=== PATIENT | male | born 1945 | race Caucasian/White ===

== ENCOUNTER 2017-05-27 19:54 | Emergency (ER) | payer MEDICARE, BC ==
[2017-05-27] MEDS ORDERED: carBAMazepine 200 MG TAB PO STA (23:09)
--- NOTE | 2017-05-27 23:09 | ED ---
General Adult HPI - General Chief complaint: Skin/Abscess/Foreign Body Stated complaint: head pains/shingles Time Seen by Provider: 05/27/17 22:07 Source: patient Mode of arrival: ambulatory Limitations: no limitations - History of Present Illness Initial comments: 71-year-old male patient presents to the emergency department today for evaluation of left sided head pain. Patient states that the pain is superficial and related to a recent shingles infection. Patient states that the skin to the left side of his head is tender. Patient states that all of his wounds and sores have healed however he has been getting intermittent and sharp head pains since this shingles started. Patient states that he has been taking gabapentin, Tylenol 3, and applying cool compresses to the site however doesn't seem to be helping. He states that the pains come out of nowhere. He states that the pain is so severe that it brings him to his knees. He denies any blurred or double vision. States he has chronic hearing loss but no changes. Patient denies any recent fever, chills, shortness breath, chest pain, abdominal pain, nausea, vomiting, diarrhea, constipation, back pain, numbness, tingling, dizziness, weakness, hematuria, dysuria, urinary urgency, urinary frequency, or any other complaints. - Related Data Previous Rx's Medication Instructions Recorded carBAMazepine 200 mg PO BID #60 tablet 05/27/17 Allergies Allergy/AdvReac Type Severity Reaction Status Date / Time No Known Allergies Allergy Verified 05/27/17 20:19 Review of Systems ROS Statement: Those systems with pertinent positive or pertinent negative responses have been documented in the HPI. ROS Other: All systems not noted in ROS Statement are negative. Past Medical History Additional Past Medical History / Comment(s): shingles History of Any Multi-Drug Resistant Organisms: None Reported Past Surgical History: No Surgical Hx Reported Past Psychological History: No Psychological Hx Reported Smoking Status: Never smoker Past Alcohol Use History: None Reported Past Drug Use History: None Reported General Exam Limitations: no limitations General appearance: alert, in no apparent distress, other (This is a well- developed, well-nourished adult male patient in no acute distress. Vital signs upon presentation are temperature 98.3F, pulse 96, respirations 20, blood pressure 175/96, pulse ox 96% on room air.) Head exam: Present: atraumatic, normocephalic, normal inspection Eye exam: Present: normal appearance, PERRL, EOMI. Absent: scleral icterus, conjunctival injection, periorbital swelling ENT exam: Present: normal exam, normal oropharynx, mucous membranes moist Respiratory exam: Present: normal lung sounds bilaterally. Absent: respiratory distress, wheezes, rales, rhonchi, stridor Cardiovascular Exam: Present: regular rate, normal rhythm, normal heart sounds. Absent: systolic murmur, diastolic murmur, rubs, gallop, clicks Neurological exam: Present: alert, oriented X3, CN II-XII intact Psychiatric exam: Present: normal affect, normal mood Skin exam: Present: warm, dry, intact, normal color. Absent: rash Course Vital Signs 05/27/17 05/27/17 05/27/17 20:16 22:03 23:13 Temperature 98.3 F 97.3 F L Pulse Rate 96 89 89 Respiratory 20 18 18 Rate Blood Pressure 175/96 186/106 180/107 O2 Sat by Pulse 96 98 97 Oximetry 05/27/17 05/28/17 23:55 00:29 Temperature 98.6 F Pulse Rate 79 72 Respiratory 18 20 Rate Blood Pressure 184/108 172/100 O2 Sat by Pulse 99 99 Oximetry Medical Decision Making - Medical Decision Making 71-year-old male patient presented to the emergency department today for evaluation of left-sided head pain related to a recent shingles infection. Physical examination is unremarkable. Patient is neurologically intact. Pain is consistent with postherpetic neuralgia. Symptoms are similar to a trigeminal neuralgia so we will attempt to add carbamazepine to his medication regimen. He is instructed to continue his gabapentin and Tylenol 3 as needed. I did discuss follow-up with neurologist. Patient did have elevated blood pressure while here in the department. He was given clonidine to bring this down. Blood pressure did improve prior to discharge she is instructed to follow -up with his primary care physician for further evaluation and monitoring of this. Return parameters were discussed in detail. He verbalizes understanding and agrees with this plan. Disposition Clinical Impression: Postherpetic neuralgia Disposition: HOME SELF-CARE Condition: Good Instructions: Shingles (ED) Additional Instructions: Take medication as directed. Follow up with the neurologist as soon as possible. Return here immediately for any new, worsening, or concerning symptoms. Prescriptions: carBAMazepine 200 mg PO BID #60 tablet Is patient prescribed a controlled substance at discharge?: No Referrals: Kaley Andres MD [Primary Care Provider] - 1-2 days Tadeo Georges MD [STAFF PHYSICIAN] - 1-2 days Time of Disposition: 23:09
[2017-05-27] MEDS ORDERED: cloNIDine HCL 0.2 MG TAB PO STA (23:50)
[2017-05-28 00:31] VITALS: BP 172/100; PULSE 72; RESP 20; TEMP 98.6
== END 2017-05-28 00:31 | disposition home or self-care (01) ==
LOC: EC 19:54
DX: B02.29 Other postherpetic nervous system involvement (principal); I10 Essential (primary) hypertension; H91.90 Unspecified hearing loss, unspecified ear
CPT/HCPCS: 99283

== ENCOUNTER → 2017-06-02 | Outpatient (CLI) | payer MEDICARE, BC ==
--- NOTE | 2017-06-02 11:36 | MR ---
EXAMINATION TYPE: MR brain wo/w con DATE OF EXAM: 06/02/2017 COMPARISON: NONE HISTORY: Headache, neck pain TECHNIQUE: Multiplanar, multisequence images of the brain and brainstem is performed without and with IV contras t, utilizing 9 mL intravenous Gadavist . FINDINGS: Diffusion weighted images demonstrate no evidence of a recent infarct or other diffusion ab normality. There is no midline shift or mass effect. No midline shift. Moderate generalized degenerative change. No enhancing mass. No cerebellopontine angle mass. Changes suggestive of chronic mastoiditis noted. WHITE MATTER: There are approximately 15 areas of abnormal signal seen scattered throughout the white matter. No callosal lesions. No lesions perpendicular to ventricular system. No enhancing lesions. IMPRESSION: 1. Degenerative and nonspecific white matter changes. Differential diagnosis would include remote alycia rovascular ischemia. Other etiologies including hypertension, Lyme's disease or demyelinating process in the differential diagnosis.
== END | disposition home or self-care (01) ==
LOC: RADMRIMAIN 08:53
PROVIDERS: ATTEND Psychiatry & Neurology Neurology
DX: R51 Headache (principal); Z51.81 Encounter for therapeutic drug level monitoring
CPT/HCPCS: 82565; 84520; 70553; 93005; A9581

== ENCOUNTER 2017-06-09 17:57 | Emergency (ER) | payer MEDICARE, BC ==
[2017-06-09 18:30] LABS: Basophils % (A) 0 %; Eosinophils # (A) 0.1 k/uL (0-0.7); Eosinophils % (A) 2 %; HCT 46.6 % (39.0-53.0); HGB 16.5 gm/dL (13.0-17.5); Lymphocytes # (A) 0.4 k/uL (1.0-4.8); Lymphocytes % (A) 5 %; MCH 32.6 pg (25.0-35.0); MCHC 35.3 g/dL (31.0-37.0); MCV 92.3 fL (80.0-100.0); Mean Platelet Volume 10.7; Monocytes # (A) 0.6 k/uL (0-1.0); Monocytes % (A) 6 %; Neutrophils # (A) 7.4 k/uL (1.3-7.7); Neutrophils % (A) 86 %; RBC 5.05 m/uL (4.30-5.90); RDW 12.7 % (11.5-15.5); WBC 8.6 k/uL (3.8-10.6)
[2017-06-09 18:42] LABS: ALT 25 U/L (21-72); AST 18 U/L (17-59); Alkaline Phosphatase 95 U/L (38-126); Anion Gap 13 mmol/L; Blood Urea Nitrogen 25 mg/dL (9-20); Calcium 8.9 mg/dL (8.4-10.2); Carbon Dioxide 26 mmol/L (22-30); Chloride 101 mmol/L (98-107); Glucose 111 mg/dL (74-99); Potassium 4.4 mmol/L (3.5-5.1); Sodium 140 mmol/L (137-145); Total Bilirubin 0.4 mg/dL (0.2-1.3); Total Protein 6.2 g/dL (6.3-8.2)
[2017-06-09 18:54] LABS: Platelet Count 11 k/uL (150-450)
--- NOTE | 2017-06-09 20:43 | CT ---
EXAMINATION TYPE: CT brain wo con DATE OF EXAM: 06/09/2017 COMPARISON: NONE HISTORY: Patient complains of headache. CT DLP: 820.[address] of the brain was performed. The ventricles, basal cisterns and sulci overlying the cerebral convexities demonstrate mild enlargem ent. There is no evidence for intracranial hemorrhage or sulcal effacement. There is decreased attenuation about the periventricular white matter and deep white matter of both c erebral hemispheres, compatible with chronic small vessel ischemia. Differential diagnosis does inclu de demyelination. No mass effects are seen.No midline shift. Osseous calvarium is intact. If symptoms persist consider MRI. IMPRESSION: 1. Age related atrophic and chronic small vessel ischemic change without acute intracranial process s een at this time.
--- NOTE | 2017-06-09 21:01 | ED ---
General Adult HPI - General Chief complaint: Recheck/Abnormal Lab/Rx Stated complaint: labs/recheck-sent by Time Seen by Provider: 06/09/17 19:42 Source: patient, RN notes reviewed Mode of arrival: ambulatory Limitations: no limitations - History of Present Illness Initial comments: 71-year-old male presents for evaluation of abnormal outpatient laboratory study. Patient had his blood drawn earlier today was called by his primary care physician with concern for low platelets. According to the patient platelets were 11 and he was told to present to the emergency department. Patient has been dealing with trigeminal neuralgia and postherpetic neuralgia on the left side of his face after a shingles infection. He has been on several new medications including acyclovir, prednisone, gabapentin and carbamazepine. Symptoms have somewhat improved although he does report severe pain at the time my evaluation is probably left facial and forehead. He does report some global headache as well. Denies any focal weakness. Denies any numbness. No rectal bleeding. No hematuria. No bleeding from the gums. No abdominal pain or chest pain. - Related Data Home Medications Medication Instructions Recorded Confirmed Acetaminophen-Codeine 300-30mg 1 tab PO Q6H PRN 06/09/17 06/09/17 [Tylenol #3] Aspirin [Adult Low Dose Aspirin EC] 81 mg PO DAILY 06/09/17 06/09/17 Atorvastatin [Lipitor] 40 mg PO HS 06/09/17 06/09/17 Gabapentin [Neurontin] 300 mg PO TID 06/09/17 06/09/17 HYDROcodone/APAP 5-325MG [[place] 1 tab PO Q6HR PRN 06/09/17 06/09/17 5-325] Lansoprazole [Prevacid] 30 mg PO DAILY 06/09/17 06/09/17 Olopatadine HCl [Patanol] 1 drop BOTH EYES DAILY 06/09/17 06/09/17 predniSONE See Taper PO DIRECTED 06/09/17 06/09/17 Previous Rx's Medication Instructions Recorded carBAMazepine 200 mg PO BID #60 tablet 05/27/17 Allergies Allergy/AdvReac Type Severity Reaction Status Date / Time No Known Allergies Allergy Verified 06/09/17 21:02 Review of Systems ROS Statement: Those systems with pertinent positive or pertinent negative responses have been documented in the HPI. ROS Other: All systems not noted in ROS Statement are negative. Past Medical History Additional Past Medical History / Comment(s): shingles History of Any Multi-Drug Resistant Organisms: None Reported Past Surgical History: No Surgical Hx Reported Past Psychological History: No Psychological Hx Reported Smoking Status: Never smoker Past Alcohol Use History: None Reported Past Drug Use History: None Reported General Exam Limitations: no limitations General appearance: alert, in no apparent distress Head exam: Present: atraumatic, normocephalic Eye exam: Present: normal appearance, PERRL, EOMI ENT exam: Present: normal exam Neck exam: Present: normal inspection. Absent: tenderness, meningismus Respiratory exam: Present: normal lung sounds bilaterally. Absent: respiratory distress Cardiovascular Exam: Present: regular rate, normal rhythm GI/Abdominal exam: Present: soft. Absent: distended, tenderness Extremities exam: Present: normal inspection, normal capillary refill. Absent: pedal edema Neurological exam: Present: alert, oriented X3, CN II-XII intact. Absent: motor sensory deficit Psychiatric exam: Present: normal affect, normal mood Skin exam: Present: warm, dry, intact. Absent: cyanosis, diaphoretic Course Vital Signs 06/09/17 06/09/17 18:04 20:20 Temperature 97.2 F L Pulse Rate 89 66 Respiratory 18 16 Rate Blood Pressure 164/89 146/75 O2 Sat by Pulse 99 96 Oximetry Medical Decision Making - Medical Decision Making Laboratory studies are repeated, platelets are 11, normal hemoglobin, normal white blood cell count. Electrolytes are normal. Given the headache and the global nature of the headache head CT is obtained, this negative for intracranial hemorrhage. Patient is on multiple medications; some cytopenia including acyclovir and carbamazepine. Case is discussed with Dr. Gaming, he recommends discontinuing carbamazepine, getting folic acid 2 mg and transfusing 1 unit of platelets. This will be done in the emergency department. As is no active bleeding patient can follow up as an outpatient. He will follow-up with his primary care physician in 2 days for repeat CBC. Patient and family is comfortable with this plan. They will discontinue carbamazepine. - Lab Data Result diagrams: 06/09/17 18:15 06/09/17 18:15 Lab Results 06/09/17 06/09/17 Range/Units 18:15 18:15 WBC 8.6 (3.8-10.6) k/uL RBC 5.05 (4.30-5.90) m/uL Hgb 16.5 (13.0-17.5) gm/dL Hct 46.6 (39.0-53.0) % MCV 92.3 (80.0-100.0) fL MCH 32.6 (25.0-35.0) pg MCHC 35.3 (31.0-37.0) g/dL RDW 12.7 (11.5-15.5) % Plt Count 11 L* (150-450) k/uL Neutrophils % 86 % Lymphocytes % 5 % Monocytes % 6 % Eosinophils % 2 % Basophils % 0 % Neutrophils # 7.4 (1.3-7.7) k/uL Lymphocytes # 0.4 L (1.0-4.8) k/uL Monocytes # 0.6 (0-1.0) k/uL Eosinophils # 0.1 (0-0.7) k/uL Basophils # 0.0 (0-0.2) k/uL Sodium 140 (137-145) mmol/L Potassium 4.4 (3.5-5.1) mmol/L Chloride 101 (98-107) mmol/L Carbon Dioxide 26 (22-30) mmol/L Anion Gap 13 mmol/L BUN 25 H (9-20) mg/dL Creatinine 0.96 (0.66-1.25) mg/dL Est GFR (CKD-EPI)AfAm >90 (>60 ml/min/1.73 sqM) Est GFR (CKD-EPI)NonAf 79 (>60 ml/min/1.73 sqM) Glucose 111 H (74-99) mg/dL Calcium 8.9 (8.4-10.2) mg/dL Total Bilirubin 0.4 (0.2-1.3) mg/dL AST 18 (17-59) U/L ALT 25 (21-72) U/L Alkaline Phosphatase 95 (38-126) U/L Total Protein 6.2 L (6.3-8.2) g/dL Albumin 4.0 (3.5-5.0) g/dL Disposition Clinical Impression: Thrombocytopenia Disposition: HOME SELF-CARE Condition: Fair Instructions: Thrombocytopenia (ED) Additional Instructions: Please discontinue carbamazepine, follow-up with primary care physician in 2 days for repeat laboratory studies. Is patient prescribed a controlled substance at d/c from ED?: No Referrals: Kaley Andres MD [Primary Care Provider] - 1-2 days Time of Disposition: 21:18
[2017-06-09] MEDS ORDERED: FOLIC ACID 1 MG TAB PO STA (21:11)
[2017-06-10 02:16] VITALS: RESP 16
[2017-06-10 02:24] VITALS: TEMP 98.4
[2017-06-10 02:27] VITALS: BP 160/88; PULSE 80
== END 2017-06-10 02:27 | disposition home or self-care (01) ==
LOC: EC 17:57
DX: D69.6 Thrombocytopenia, unspecified (principal); B02.29 Other postherpetic nervous system involvement; G50.0 Trigeminal neuralgia; Z79.52 Long term (current) use of systemic steroids; Z79.82 Long term (current) use of aspirin; Z79.899 Other long term (current) drug therapy
CPT/HCPCS: 36415; 86900; 86901; 80053; 85025; 86850; 70450; 99284; P9035

== ENCOUNTER → 2017-06-11 | Outpatient (CLI) | payer MEDICARE, BC ==
[2017-06-11 09:28] LABS: HCT 46.7 % (39.0-53.0); HGB 16.2 gm/dL (13.0-17.5); MCHC 34.7 g/dL (31.0-37.0); MCV 92.3 fL (80.0-100.0); Mean Platelet Volume 13.2; RBC 5.06 m/uL (4.30-5.90); RDW 12.8 % (11.5-15.5); WBC 9.6 k/uL (3.8-10.6)
[2017-06-11 10:22] LABS: Platelet Count 17 k/uL (150-450)
== END | disposition home or self-care (01) ==
LOC: LABWHC1 08:56
PROVIDERS: ATTEND Family Medicine
DX: Z51.81 Encounter for therapeutic drug level monitoring (principal); Z79.899 Other long term (current) drug therapy
CPT/HCPCS: 36415; 85027

== ENCOUNTER 2017-06-15 15:21 | Emergency (ER) | payer MEDICARE, BC ==
[2017-06-15 15:49] VITALS: RESP 18
[2017-06-15] MEDS ORDERED: SODIUM CHLORIDE 0.9% 1,000 ML IV ONE (16:06)
--- NOTE | 2017-06-15 16:13 | ED ---
General Adult HPI - General Chief complaint: Recheck/Abnormal Lab/Rx Stated complaint: low platelet-sent by Dr. NOMAN Mishra Time Seen by Provider: 06/15/17 15:56 Source: patient Mode of arrival: ambulatory Limitations: no limitations - History of Present Illness Initial comments: 71 years old male sent in by Dr. Mishra, he had A shingles on the left side of the headcomplaining about left-sided headache and was diagnosed with thrombocytopenia a few days ago he has been on acyclovir and then prior to that he was started on a carbamazepine for neurology he also had a was up with his doctor today and he felt that he didn't look right to make sure there is no intracranial bleed this anymore for head CT. And now last 2 times he had a blood work done his platelets were less than 20. He denies any bleeding from the gums and no hematuria no melena. Review of system is otherwise unremarkable - Related Data Home Medications Medication Instructions Recorded Confirmed Atorvastatin [Lipitor] 40 mg PO DAILY 06/09/17 06/15/17 HYDROcodone/APAP 5-325MG [Hay 1 tab PO Q6HR PRN 06/09/17 06/15/17 5-325] Lansoprazole [Prevacid] 30 mg PO DAILY 06/09/17 06/15/17 Olopatadine HCl [Patanol] 1 drop BOTH EYES DAILY 06/09/17 06/15/17 Losartan-Hctz 50-12.5 mg [Hyzaar 1 tab PO DAILY 06/15/17 06/15/17 50-12.5] Allergies Allergy/AdvReac Type Severity Reaction Status Date / Time No Known Allergies Allergy Verified 06/15/17 16:11 Review of Systems ROS Statement: Those systems with pertinent positive or pertinent negative responses have been documented in the HPI. ROS Other: All systems not noted in ROS Statement are negative. Past Medical History Past Medical History: Hypertension Additional Past Medical History / Comment(s): shingles, asbestos in his lungs History of Any Multi-Drug Resistant Organisms: None Reported Past Surgical History: No Surgical Hx Reported Past Psychological History: No Psychological Hx Reported Smoking Status: Former smoker Past Alcohol Use History: Occasional Past Drug Use History: None Reported General Exam - General Exam Comments Initial Comments: General: The patient is awake , he does look pale and tired GCS is 15 Skin: Skin is warm and dry and no rashes or lesions are noted. Left side of the upper face as well as some temporal region noticed some erythema no typical vesicles noticed Eye: Pupils are equal, round and reactive to light, extra-ocular movements are intact; there is normal conjunctiva bilaterally. Ears, nose, mouth and throat: There are moist mucous membranes and no oral lesions. Neck: The neck is supple, there is no tenderness Cardiovascular: There is a regular rate and rhythm. No murmur, rub or gallop is appreciated. Respiratory: To auscultation bilateral, no wheezing no rhonchi no distress respiratory faust noticed Gastrointestinal: Soft, non-distended, non-tender abdomen without masses or organomegaly noted. There is no rebound or guarding present. Bowel sounds are unremarkable. Back: There is no tenderness to palpation in the midline. There is no obvious deformity. Musculoskeletal: Normal ROM, no tenderness, There is no pedal edema. There is no calf tenderness or swelling. No cords were appreciated. Neurological: CN II-XII intact, Cranial nerves III through XII are intact. There are no obvious motor or sensory deficits. Coordination appears grossly intact. Speech is normal. Psychiatric: Cooperative, appropriate mood & affect, normal judgment. Limitations: no limitations Course Vital Signs 06/15/17 15:46 Temperature 96.9 F L Pulse Rate 92 Respiratory 18 Rate Blood Pressure 142/86 O2 Sat by Pulse 95 Oximetry S1 noticed CBC, CMP, head CT, chest x-ray are unremarkable I'm concerned about the platelet Days ago were very low less than 20 today platelets are normal him I am repeating the CBC to make sure that the right specimen was normal except for the specimen - Reevaluation(s) Reevaluation #1: CBC was repeated twice in the ER there is definitely a great improvement now his platelets were greater than 200 he hasn't no new deficits at all he is happy to go home and he will follow with the family doctor within the next couple days I met him as well as his family they're comfortable going home 06/15/17 18:26 EKG Findings - EKG Comments: EKG Findings:: ALLERGIES normal sinus rhythm ventricular rate is 84 GA interval is 160 QRS duration is 1 or 2 QT is QT/QTC 380/449 review of this EKG does not reveal any ST elevation or ST depression noticed some PVCs Medical Decision Making - Lab Data Result diagrams: 06/15/17 17:09 06/15/17 15:58 Lab Results 06/15/17 06/15/17 06/15/17 Range/Units 15:58 15:58 15:58 WBC 8.6 (3.8-10.6) k/uL RBC 5.01 (4.30-5.90) m/uL Hgb 15.9 (13.0-17.5) gm/dL Hct 45.7 (39.0-53.0) % MCV 91.2 (80.0-100.0) fL MCH 31.7 (25.0-35.0) pg MCHC 34.7 (31.0-37.0) g/dL RDW 12.7 (11.5-15.5) % Plt Count 247 D (150-450) k/uL Neutrophils % 66 % Lymphocytes % 24 % Monocytes % 6 % Eosinophils % 3 % Basophils % 0 % Neutrophils # 5.6 (1.3-7.7) k/uL Lymphocytes # 2.0 (1.0-4.8) k/uL Monocytes # 0.5 (0-1.0) k/uL Eosinophils # 0.3 (0-0.7) k/uL Basophils # 0.0 (0-0.2) k/uL Hypochromasia Poikilocytosis PT 10.9 (9.0-12.0) sec INR 1.1 (<1.2) APTT 23.8 (22.0-30.0) sec Sodium 141 (137-145) mmol/L Potassium 4.4 (3.5-5.1) mmol/L Chloride 102 (98-107) mmol/L Carbon Dioxide 23 (22-30) mmol/L Anion Gap 16 mmol/L BUN 18 (9-20) mg/dL Creatinine 0.77 (0.66-1.25) mg/dL Est GFR (CKD-EPI)AfAm >90 (>60 ml/min/1.73 sqM) Est GFR (CKD-EPI)NonAf >90 (>60 ml/min/1.73 sqM) Glucose 134 H (74-99) mg/dL POC Glucose (mg/dL) (75-99) mg/dL POC Glu Resistance Welder ID Calcium 9.4 (8.4-10.2) mg/dL Total Bilirubin 0.7 (0.2-1.3) mg/dL AST 30 (17-59) U/L ALT 58 (21-72) U/L Alkaline Phosphatase 89 (38-126) U/L Troponin I (0.000-0.034) ng/mL Total Protein 6.6 (6.3-8.2) g/dL Albumin 4.1 (3.5-5.0) g/dL 06/15/17 06/15/17 06/15/17 Range/Units 15:58 16:22 17:09 WBC 9.9 (3.8-10.6) k/uL RBC 4.74 (4.30-5.90) m/uL Hgb 15.7 (13.0-17.5) gm/dL Hct 43.5 (39.0-53.0) % MCV 91.9 (80.0-100.0) fL MCH 33.1 (25.0-35.0) pg MCHC 36.0 (31.0-37.0) g/dL RDW 14.8 (11.5-15.5) % Plt Count 201 (150-450) k/uL Neutrophils % % Lymphocytes % % Monocytes % % Eosinophils % % Basophils % % Neutrophils # (1.3-7.7) k/uL Lymphocytes # (1.0-4.8) k/uL Monocytes # (0-1.0) k/uL Eosinophils # (0-0.7) k/uL Basophils # (0-0.2) k/uL Hypochromasia Moderate Poikilocytosis Marked PT (9.0-12.0) sec INR (<1.2) APTT (22.0-30.0) sec Sodium (137-145) mmol/L Potassium (3.5-5.1) mmol/L Chloride (98-107) mmol/L Carbon Dioxide (22-30) mmol/L Anion Gap mmol/L BUN (9-20) mg/dL Creatinine (0.66-1.25) mg/dL Est GFR (CKD-EPI)AfAm (>60 ml/min/1.73 sqM) Est GFR (CKD-EPI)NonAf (>60 ml/min/1.73 sqM) Glucose (74-99) mg/dL POC Glucose (mg/dL) 148 H (75-99) mg/dL POC Glu Resistance Welder ID Nita Andrea Calcium (8.4-10.2) mg/dL Total Bilirubin (0.2-1.3) mg/dL AST (17-59) U/L ALT (21-72) U/L Alkaline Phosphatase (38-126) U/L Troponin I <0.012 (0.000-0.034) ng/mL Total Protein (6.3-8.2) g/dL Albumin (3.5-5.0) g/dL Disposition Clinical Impression: Headache, Thrombocytopenia Disposition: HOME SELF-CARE Condition: Good Instructions: Acute Headache (ED) Additional Instructions: Patient would continue his gabapentin for this postherpetic neuralgia, was advised to stop the carbamazepine Is patient prescribed a controlled substance at d/c from ED?: No If prescribed controlled substance>3 days was MAPS reviewed?: No When asked, does pt state using other controlled substances?: No Referrals: Kaley Andres MD [Primary Care Provider] - 1-2 days
[2017-06-15 16:23] LABS: Glucose,Whole Blood 148 mg/dL (75-99)
[2017-06-15 16:32] LABS: Basophils % (A) 0 %; Eosinophils # (A) 0.3 k/uL (0-0.7); Eosinophils % (A) 3 %; HCT 45.7 % (39.0-53.0); HGB 15.9 gm/dL (13.0-17.5); Lymphocytes % (A) 24 %; MCH 31.7 pg (25.0-35.0); MCHC 34.7 g/dL (31.0-37.0); MCV 91.2 fL (80.0-100.0); Mean Platelet Volume 8.9; Monocytes # (A) 0.5 k/uL (0-1.0); Monocytes % (A) 6 %; Neutrophils # (A) 5.6 k/uL (1.3-7.7); Neutrophils % (A) 66 %; RBC 5.01 m/uL (4.30-5.90); RDW 12.7 % (11.5-15.5); WBC 8.6 k/uL (3.8-10.6)
[2017-06-15 16:39] LABS: Platelet Count 247 k/uL (150-450)
[2017-06-15 16:42] LABS: ALT 58 U/L (21-72); AST 30 U/L (17-59); Albumin 4.1 g/dL (3.5-5.0); Alkaline Phosphatase 89 U/L (38-126); Anion Gap 16 mmol/L; Blood Urea Nitrogen 18 mg/dL (9-20); Calcium 9.4 mg/dL (8.4-10.2); Carbon Dioxide 23 mmol/L (22-30); Chloride 102 mmol/L (98-107); Glucose 134 mg/dL (74-99); Potassium 4.4 mmol/L (3.5-5.1); Sodium 141 mmol/L (137-145); Total Bilirubin 0.7 mg/dL (0.2-1.3); Total Protein 6.6 g/dL (6.3-8.2)
--- NOTE | 2017-06-15 16:47 | CT ---
EXAMINATION TYPE: CT brain wo con DATE OF EXAM: 06/15/2017 COMPARISON: 06/09/2017 HISTORY: Altered mental status. CT DLP: 1168 mGycm Automated exposure control for dose reduction was used. FINDINGS: There is cerebral cortical atrophy. There is no mass effect norm and line shift. There is no sign of intracranial hemorrhage. The calvarium is intact. IMPRESSION: CEREBRAL ATROPHY. NO ACUTE INTRACRANIAL ABNORMALITY. NO CHANGE.
[2017-06-15 16:58] LABS: INR 1.1 (<1.2); Partial Thromboplastin Time 23.8 sec (22.0-30.0); Prothrombin Time 10.9 sec (9.0-12.0)
--- NOTE | 2017-06-15 17:00 | XR ---
EXAMINATION TYPE: XR chest 2V DATE OF EXAM: 06/15/2017 COMPARISON: 01/21/2012 HISTORY: Cough TECHNIQUE: Frontal and lateral views of the chest are obtained. FINDINGS: Heart and mediastinum are normal. Lungs are clear of infiltrate. There is no heart failure . Bony thorax is intact. IMPRESSION: Normal chest. No change.
[2017-06-15 18:07] LABS: HCT 43.5 % (39.0-53.0); HGB 15.7 gm/dL (13.0-17.5); Hypochromasia Moderate; MCH 33.1 pg (25.0-35.0); MCV 91.9 fL (80.0-100.0); Mean Platelet Volume 11.4; Platelet Count 201 k/uL (150-450); Poikilocytosis Marked; RBC 4.74 m/uL (4.30-5.90); RDW 14.8 % (11.5-15.5); WBC 9.9 k/uL (3.8-10.6)
[2017-06-15 18:49] VITALS: BP 130/67; PULSE 70; TEMP 97.8
== END 2017-06-15 18:49 | disposition home or self-care (01) ==
LOC: EC 15:21
DX: D69.6 Thrombocytopenia, unspecified (principal); R51 Headache; R40.2412 Glasgow coma scale score 13-15, at arrival to emergency department; I10 Essential (primary) hypertension; Z87.891 Personal history of nicotine dependence; Z79.899 Other long term (current) drug therapy
CPT/HCPCS: 36415; 70450; 71046; 80053; 84484; 85025; 85027; 85610; 85730; 93005; 99284

== ENCOUNTER → 2018-08-06 | Outpatient (CLI) | payer MEDICARE, BC ==
--- NOTE | 2018-08-06 13:39 | CT ---
EXAMINATION TYPE: CT chest wo con DATE OF EXAM: 08/06/2018 COMPARISON: December 11, 2016 and 07/10/2014 HISTORY: Lung nodule, asbestos exposure follow up CT DLP: [address] of the chest was performed with lung and mediastinal window settings submitted. The la ck of contrast limits evaluation of the vascular, mediastinal and parenchymal structures including th e upper abdomen. LUNGS: The lungs are clear and free of infiltrate. No atelectasis. Stable 4 mm nodule left mid lung z one adjacent to the fissure image 29. Stable subpleural nodule right lower lobe posteriorly. No new n odules. Moderately advanced changes of centrilobular disease. No pleural effusion. MEDIASTINUM/LEX: Thoracic aorta is of normal caliber with limited evaluation given lack of contrast . The heart is not enlarged. No evidence for mediastinal mass. No lymph nodes greater than 1cm. UPPER ABDOMEN: No significant abnormality is seen. OTHER: No significant other abnormality. IMPRESSION: 1. Stable pulmonary nodularity dating back to 2014. Nodules are considered benign.
== END | disposition home or self-care (01) ==
LOC: RADCTMAIN 12:23
PROVIDERS: ATTEND Internal Medicine Pulmonary Disease
DX: R91.8 Other nonspecific abnormal finding of lung field (principal)
CPT/HCPCS: 71250

== ENCOUNTER → 2018-12-14 | Outpatient (CLI) | payer MEDICARE, BC ==
--- NOTE | 2018-12-14 15:53 | US ---
EXAMINATION TYPE: US carotid duplex BILAT DATE OF EXAM: 12/14/2018 COMPARISON: NONE CLINICAL HISTORY: H53.9 Visual disturbance. Dizziness EXAM MEASUREMENTS: RIGHT: Peak Systolic Velocity (PSV) cm/sec ----- Right CCA: 75.3 ----- Right ICA: 93.1 ----- Right ECA: 292.8 ICA/CCA ratio: 1.2 RIGHT: End Diastole cm/sec ----- Right CCA: 21.4 ----- Right ICA: 31.7 ----- Right ECA: 53.4 LEFT: Peak Systolic Velocity (PSV) cm/sec ----- Left CCA: 75.9 ----- Left ICA: 97.9 ----- Left ECA: 177.3 ICA/CCA ratio: 1.3 LEFT: End Diastole cm/sec ----- Left CCA: 22.8 ----- Left ICA: 34.5 ----- Left ECA: 29.5 VERTEBRALS (direction of flow): Right Vertebral: Antegrade Left Vertebral: Antegrade Rhythm: Normal Large amounts of calcified plaque bilateral bulbs. Increased flow velocities bilat ECA's R>L IMPRESSION: Severe atherosclerotic change bilaterally without significant focal stenosis in either i nternal carotid artery. Criteria for Assigning % of Stenosis / Diameter reduction (Estimation based on the indirect measurements of the internal carotid artery velocities (ICA PSV). 1. Normal (no stenosis)=ICA PSV < 125 cm/s: ratio < 2.0: ICA EDV<40 cm/s. 2. Less than 50% stenosis=ICA PSV < 125 cm/s: ratio < 2.0: ICA EDV<40 cm/s. 3. 50 to 69% stenosis=ICA PSV of 125 to 230 cm/s: ration 2.0 ? 4.0: ICA EDV 40-100 cm/s. 4. Greater than 70% stenosis to near occlusion= ICA PSV > 230 cm/s: ratio > 4.0: ICA EDV > 100 cm/s. 5. Near occlusion= ICA PSV velocities may be low or undetectable: variable ratio and ICA EDV. 6. Total occlusion=unable to detect flow.
== END | disposition home or self-care (01) ==
LOC: RADUSWWP 15:10
PROVIDERS: ATTEND Family Medicine
DX: I65.23 Occlusion and stenosis of bilateral carotid arteries (principal)
CPT/HCPCS: 93880

== ENCOUNTER → 2019-07-27 | Outpatient (CLI) | payer MEDICARE, BC ==
--- NOTE | 2019-07-27 08:50 | CT ---
EXAMINATION TYPE: CT chest wo con DATE OF EXAM: 07/27/2019 COMPARISON: CT chest August 06, 2018 and older CTs HISTORY: Asbestosis, (localized swelling, mass and lump of trunk) CT DLP: 560.2 mGycm. Automated Exposure Control for Dose Reduction was Utilized. TECHNIQUE: CT scan of the thorax is performed without IV contrast. FINDINGS: LUNGS: Persistent mild biapical pleural/parenchymal scarring. Background moderate underlying emphysem atous changes is redemonstrated. Stable 4 mm nodule along left lung fissure axial image 28 unchanged back thru 2013 study. No new pulmonary nodules or masses. No pleural effusion or pneumothorax. No sig nificant calcified pleural plaques. MEDIASTINUM: Lack of IV contrast is noted to limit evaluation for mediastinal and especially hilar ad enopathy. There are no definitive greater than 1 cm hilar or mediastinal lymph nodes. No cardiomega ly or pericardial effusion is seen. Moderate to severe three-vessel coronary artery calcification whi ch is noted marked of underlying coronary artery disease is redemonstrated. OTHER: Mild multilevel spurring in the thoracic spine. Liver slightly low dense relative to spleen co nsistent with mild diffuse fatty infiltration. IMPRESSION: Moderate chronic emphysematous changes without acute pulmonary process. No significant ch indra from recent CT.
== END | disposition home or self-care (01) ==
LOC: RADCTMAIN 07:43
PROVIDERS: ATTEND Family Medicine
DX: J43.9 Emphysema, unspecified (principal)
CPT/HCPCS: 71250

== ENCOUNTER → 2019-08-29 | Outpatient (CLI) | payer MEDICARE, BC | END | disposition home or self-care (01) | LOC: LABPAT 11:32 | PROVIDERS: ATTEND Orthopaedic Surgery | DX: Z01.812 Encounter for preprocedural laboratory examination (principal) | CPT/HCPCS: 87070 ==

== ENCOUNTER 2019-09-12 11:14 | Day surgery (SDC) | payer MEDICARE, BC ==
[2019-09-08 14:58] VITALS: BMI 30.4
--- NOTE | 2019-09-11 11:36 | HP ---
HISTORY AND PHYSICAL REASON FOR ADMISSION: Surgery scheduled for 09/12/2019 Moose Chaudhry is a 74-year-old patient seen with symptomatic right knee osteoarthritis. We discussed options for treatment. He elected to proceed with right total knee arthroplasty. Consent regarding the procedure was obtained. Clearance was provided by Dr. Andres. PAST MEDICAL HISTORY: Hypertension, hyperlipidemia. PAST SURGICAL HISTORY: Knee arthroscopy. MEDICATIONS: Lipitor, Prevacid. ALLERGIES: None. SOCIAL HISTORY: Denies tobacco use. PHYSICAL EXAMINATION: Evaluation right knee: Range of motion is -2 to 120. Tenderness medial joint line. Crepitus medial patellofemoral compartment with range of motion. Pain with patellofemoral compression. Ligaments stable. Hip rotation without pain. Distal neurovascular exam is intact. RADIOGRAPHS: Right knee radiographs reveal severe osteoarthritic changes. IMPRESSION: 1. Right knee osteoarthritis. 2. Hypertension. 3. Hyperlipidemia. PLAN: Right total knee arthroplasty. MMODL / IJN: [id number] /
[~2019-09-12 11:14] MED LIST: DEXAMETHASONE SOD PHOSPHATE 10 MG/ML 1 ML VIAL IV ONE; ONDANSETRON 4 MG/2 ML VIAL IVP ONE; ROPIVACAINE 246.25 MG, EPINEPHrine 0.5 MG, KETOROLAC 30 MG, cloNIDine HCL/PF 80 MCG, WA... MISCELLANE ONE; TRANEXAMIC ACID 1,000 MG in SODIUM CHLORIDE 0.9% 100 ML IVPB ONE
[2019-09-12] MEDS ORDERED: ACETAMINOPHEN TAB 500 MG TAB ONE (11:22)
[2019-09-12] MEDS ORDERED: ONDANSETRON 4 MG/2 ML VIAL ONE (11:22)
[2019-09-12] MEDS: LIDOCAINE 1% (10MG/ML) FOR IV START INTRADERMA PRN ×2 (11:38→11:47)
[2019-09-12] MEDS: ACETAMINOPHEN TAB 500 MG TAB PO ONE ×2 (11:40→11:48)
[2019-09-12] MEDS: MELOXICAM 7.5 MG TAB PO ONE ×2 (11:40→11:47)
[2019-09-12] MEDS: LACTATED RINGERS 1,000 ML IV SCH ×3 (11:47→18:24)
[2019-09-12] MEDS ORDERED: MIDAZOLAM 2 MG/2 ML VIAL IV ONE (11:49)
[2019-09-12] MEDS ORDERED: ROPIVACAINE 0.2%-NS ON-Q PUMP 1,090 MG, EMPTY PAIN BALL 1 EACH MISCELLANE PRN (12:13)
[2019-09-12] MEDS ORDERED: fentaNYL (PF) 50 MCG/ML 2 ML AMP ONE (12:58)
[2019-09-12] MEDS ORDERED: TRANEXAMIC ACID 1,000 MG/10 ML VIAL ONE (12:58)
[2019-09-12] MEDS ORDERED: MIDAZOLAM 2 MG/2 ML VIAL ONE (12:58)
[2019-09-12] MEDS ORDERED: SODIUM CHLORIDE 0.9% 100 ML BAG ONE (12:58)
[2019-09-12] MEDS ORDERED: PROPOFOL 10 MG/ML 20 ML VIAL IV ONE (12:58)
[2019-09-12] MEDS ORDERED: ceFAZolin 3,000 MG in SODIUM CHLORIDE 0.9% IRRIGATIO 3,000 ML IRRIGATION ONE (13:31)
[2019-09-12] MEDS ORDERED: HYDROmorphone 0.5 MG/0.5 ML SYRINGE IVP PRN ×3 (15:02)
[2019-09-12] MEDS ORDERED: ONDANSETRON 4 MG/2 ML VIAL IVP PRN (15:02)
[2019-09-12] MEDS ORDERED: hydrOXYzine pamoate 25 MG CAP PO PRN (15:02)
[2019-09-12] MEDS ORDERED: NALOXONE 0.4 MG/ML 1 ML VIAL IV PRN (15:02)
[2019-09-12] MEDS ORDERED: HYDROcodone/APAP 5-325MG 1 EACH TAB PO PRN ×2 (15:02)
--- NOTE | 2019-09-12 15:02 | P.OP ---
Date of Procedure: 09/12/19 Preoperative Diagnosis: Right knee osteoarthritis Postoperative Diagnosis: Right knee osteoarthritis Procedure(s) Performed: Right total knee arthroplasty Implants: 1. Microport evolution size 5 right cemented femur 2. Microport evolution size 6 right cemented tibial baseplate 3. Microport evolution size 6 right CS 10 mm polyethylene tibial insert 4. Microport advance 38 mm all polyethylene cemented patella Anesthesia: regional, local, spinal Surgeon: Hu Flaherty Stitcher Hand #1: Sonny Hicks Estimated Blood Loss (ml): 35 Pathology: other (Bone) Condition: stable Disposition: PACU Indications for Procedure: 74-year-old patient seen with symptomatic right knee osteoarthritis. After treatment options were discussed, he elected to proceed with total knee arthroplasty. Operative Findings: see description of procedure Description of Procedure: Patient was taken to the operative suite after having an adductor canal catheter placed by the department of anesthesia. Patient underwent a spinal anesthetic by the department of anesthesia. Patient was given preoperative IV intake antibiotics and TXA. A well-padded tourniquet was placed about the right lower extremity. The lower extremity was then prepped and draped in the normal sterile orthopedic fashion. The extremity was elevated, a tourniquet was insufflated to 300. A standard anterior incision was made sharply through skin. Dissection was taken down through the subcutaneous soft tissues down to the extensor mechanism. A medial arthrotomy was performed, patella was everted and knee was flexed. There was advanced osteoarthritis noted. I introduced my distal intramedullary femoral drill. I then introduced the distal femoral cutting jig. Guanako UMAÑA secured the cutting jig with 2 pins. I held retractors in position while Guanako UMAÑA performed the distal femoral resection through the guide area we now removed her distal femoral cutting guide. We now placed our 4-in-1 femoral cutting block and positioned and it was secured with 2 pins by Guanako UMAÑA while I held the block in position. The distal femoral finishing was now completed. A proximal tibial cutting guide was positioned. I held the guide in the appropriate position with both hands well Guanako UMAÑA inserted stabilizing pins into the guide. Proximal tibial cut was made. We now placed a trial femoral component into position, along with an appropriate size tibial tray and insert. We now took the knee through range of motion and had full extension good flexion and good overall soft tissue balance noted. The patella was everted and stabilized with 2 towel clips held by Guanako UMAÑA while I performed a flush with patellar quad tendon utilizing a fresh sawblade. We templated the patella, appropriate drill holes were made. An appropriate trial patella was positioned, knee was taken through full range of motion with the patella tracking very nicely. The trial patella was removed. Drill holes were made through the femoral component. All trial components were removed after marking off the appropriate rotation of the tibia. Retractors were now positioned along the proximal tibia. An appropriate keel punch was made with the appropriate size tibial guide by myself on Guanako UMAÑA assisted by holding retractors. At this point appropriate size implants were chosen and opened. The joint was irrigated copiously with pulse lavage mechanical irrigation. The posterior capsule was infiltrated with local analgesic. The wound was irrigated with pulse lavage mechanical irrigation. We mixed antibiotic methylmethacrylate. We placed the knee into flexion. We placed multiple retractors assisted by Guanako UMAÑA to expose the proximal tibia. Once the methyl methacrylate was ready, the tibial component was cemented into place removing any excess methylmethacrylate form by both myself and Guanako UMAÑA. The femoral component was cemented into place removing the removing any ex cess methylmethacrylate performed by both myself and Guanako UMAÑA. We then inserted the appropriate size polyethylene tibial insert. We made sure that it was locked into position. We took the knee into full extension, and then back in a flexion making sure we had removed any excess methylmethacrylate. The patellar component was then cemented down and secured with clamp. Excess methylmethacrylate removed. We kept the knee in full extension, patellar clamp in position until methylmethacrylate had hardened. Once it had hardened the patellar clamp was removed. The knee was taken through full range of motion. The patella tracked nicely. There was good soft tissue balancing. The tourniquet was now released. Additional hemostasis was achieved via electrocautery. A second gram of TXA was given. The wound again was irrigated with pulse lavage mechanical irrigation. The superficial soft tissues were infiltrated local analgesic. The extensor mechanism was repaired with Vicryl. We checked the repair with range of motion and it was stable. The subcutaneous soft tissues were repaired with Vicryl in layers. The skin was approximated with pernio/Dermabond. Sterile dressings were applied followed by loose web roll and Lupillo bandage. The patient was transferred to a bed, and taken to recovery in stable and satisfactory condition. Guanako UMAÑA assisted with this complex procedure.
[2019-09-12] MEDS: HYDROmorphone 0.5 MG/0.5 ML SYRINGE IVP PRN ×2 (15:26→15:48)
[2019-09-12] MEDS ORDERED: hydrALAZINE HCL 20 MG/ML 1 ML VIAL IVP ONE (15:36)
--- NOTE | 2019-09-12 15:54 | XR ---
EXAMINATION TYPE: XR knee limited RT DATE OF EXAM: 09/12/2019 COMPARISON: NONE TECHNIQUE: Two views submitted HISTORY: Post op FINDINGS: There is a prosthetic knee in near anatomic alignment. There is soft tissue edema and emphysema. IMPRESSION: 1. Postoperative change. Appears in near-anatomic alignment
[2019-09-12] MEDS ORDERED: METOPROLOL TARTRATE 5 MG/5 ML VIAL IVP ONE (16:39)
[2019-09-12] MEDS ORDERED: SENNOSIDES-DOCUSATE SODIUM 1 EACH TAB PO SCH (21:00)
--- NOTE | 2019-09-12 23:10 | P.CONS ---
History of Present Illness - Reason for Consult Consult date: 09/12/19 - History of Present Illness Patient is 74-year-old male with a PMH of hypertension, hyperlipidemia, and GERD who was admitted for elective right knee total arthroplasty. The patient underwent the procedure earlier today and was seen postoperatively on the surgical unit. He reported excellent control of his pain, currently at 2 out of 10. Denied any additional complaints. The patient did have postoperative urinary retention for which a Cisneros was placed. He denied chest pain, shortness of breath or fever, chills, nausea, vomiting, abdominal pain. He reported compliance with his home medications. Review of Systems Pertinent positives and negatives as discussed in HPI, a complete review of systems was performed and all other systems are negative. Past Medical History Past Medical History: GERD/Reflux, Hyperlipidemia, Hypertension, Osteoarthritis (OA) Additional Past Medical History / Comment(s): hx shingles, asbestos in his lungs, History of Any Multi-Drug Resistant Organisms: None Reported Past Surgical History: No Surgical Hx Reported Additional Past Surgical History / Comment(s): colonocopy Additional Past Anesthesia/Blood Transfusion Reaction / Comm: never had general or spinal anesthesia, unknown family hx Past Psychological History: No Psychological Hx Reported Smoking Status: Never smoker Past Alcohol Use History: Occasional Additional Past Alcohol Use History / Comment(s): quit smoking 20 yrs ago, smoked for 20 yrs Past Drug Use History: None Reported - Past Family History Brother(s) Family Medical History: Cancer Sister(s) Family Medical History: Cancer Medications and Allergies Home Medications Medication Instructions Recorded Confirmed Type Atorvastatin [Lipitor] 40 mg PO DAILY 06/09/17 09/12/19 History Lansoprazole [Prevacid] 30 mg PO DAILY 06/09/17 09/12/19 History Amitriptyline HCl [Elavil] 50 mg PO HS 09/08/19 09/12/19 History Losartan [Cozaar] 50 mg PO BID 09/08/19 09/12/19 History Magnesium 500 mg PO DAILY 09/08/19 09/12/19 History Allergies Allergy/AdvReac Type Severity Reaction Status Date / Time No Known Allergies Allergy Verified 09/12/19 11:31 Physical Exam Vitals: Vital Signs Temp Pulse Pulse Resp BP BP Pulse Ox 09/12/19 18:26 97.4 F L 87 16 178/98 96 09/12/19 18:03 162/92 08/03/20 17:45 81 16 180/103 98 09/12/19 17:15 82 16 167/105 96 09/12/19 17:00 82 16 169/101 94 L 09/12/19 16:45 83 16 146/89 93 L 09/12/19 16:30 88 16 166/93 93 L 09/12/19 16:15 85 18 170/98 93 L 09/12/19 16:05 83 18 172/97 96 09/12/19 15:50 85 16 166/98 100 09/12/19 15:35 85 16 176/105 94 L 09/12/19 15:19 97 F L 88 18 184/104 93 L 09/12/19 12:00 81 16 149/88 99 09/12/19 11:26 98.0 F 85 16 174/102 97 Intake and Output 09/12/19 09/12/19 09/13/19 14:59 22:59 06:59 Intake Total 1651 200 Output Total 35 800 Balance 1616 -600 Intake: IV 1651 200 Output: Urine 800 Estimated Blood Loss 35 Other: Voiding Method Indwelling Catheter Weight 92 kg 92 kg General: non toxic, no distress, appears at stated age, obese Derm: no unusual rashes/lesions no unusual ecchymoses, warm, dry Head: atraumatic, normocephalic, symmetric Eyes: EOMI, no lid lag, anicteric sclera, pupils equal round reactive to light ENT: Nose and ears atraumatic, no thrush, no pharyngeal erythema Neck: No thyromegaly, no cervical lymphadenopathy, trachea midline, supple Mouth: no lip lesion, mucus membranes moist Cardiovascular: S1S2 reg, no murmur, positive posterior tibial pulse bilateral, no edema, capillary refill less than 2 seconds Lungs: CTA bilateral, no rhonchi, no rales , no accessory muscle use Abdominal: soft, nontender to palpation, no guarding, no appreciable organomegaly, normal bowel sounds Ext: no gross muscle atrophy, right knee Lupillo bandage in place, muscle strength 5 out of 5 in all extremities except right lower extremity postoperatively, no contractures, Neuro: CN II-XI grossly intact, light touch intact all 4 extremities, finger to nose within normal limits, Psych: Alert, oriented, appropriate affect Assessment and Plan Plan: Hypertension -Continue with home losartan Hyperlipidemia -Continue home Lipitor Status post right total knee arthroplasty -Management including pain control as per the surgical service
[2019-09-13] MEDS: LACTATED RINGERS 1,000 ML IV SCH (04:08)
[2019-09-13 07:49] LABS: Basophils % (A) 0 %; Eosinophils % (A) 0 %; HCT 40.4 % (39.0-53.0); HGB 13.5 gm/dL (13.0-17.5); Lymphocytes # (A) 1.3 k/uL (1.0-4.8); Lymphocytes % (A) 7 %; MCH 32.9 pg (25.0-35.0); MCHC 33.3 g/dL (31.0-37.0); MCV 98.7 fL (80.0-100.0); Monocytes # (A) 0.7 k/uL (0-1.0); Monocytes % (A) 4 %; Neutrophils # (A) 16.6 k/uL (1.3-7.7); Neutrophils % (A) 89 %; Platelet Count 195 k/uL (150-450); RBC 4.09 m/uL (4.30-5.90); RDW 12.9 % (11.5-15.5); WBC 18.7 k/uL (3.8-10.6)
[2019-09-13] MEDS ORDERED: MELOXICAM 7.5 MG TAB PO SCH (09:00)
[2019-09-13] MEDS ORDERED: ATORVASTATIN 40 MG TAB PO SCH (09:00)
[2019-09-13] MEDS ORDERED: PANTOPRAZOLE 40 MG TABLET PO SCH (09:00)
[2019-09-13] MEDS ORDERED: LOSARTAN 50 MG TAB PO SCH (09:00)
[2019-09-13] MEDS ORDERED: ENOXAPARIN 30 MG/0.3 ML SYRINGE SQ SCH (09:00)
--- NOTE | 2019-09-13 09:40 | P.PN ---
Subjective Progress Note Date: 09/13/19 Principal diagnosis: arthritis Patient is a 74-year-old male with a history of hypertension and dyslipidemia and acid reflux who presented for a right total knee arthroplasty. He tolerated the procedure well without any immediate postoperative complications. Patient seen and examined at bedside. He states that he had almost no knee pain last evening was able to walk multiple laps. However today after chemotherapy he is having significant right knee pain. He denies any chest pain, shortness of breath, lightheadedness, dizziness, or nausea. General: Non toxic, no distress, appears at stated age Derm: Dressing over right knee, warm, dry Head: atraumatic, normocephalic, symmetric Eyes: EOMI, no lid lag, anicteric sclera Mouth: no lip lesion, mucus membranes moist Cardiovascular: S1S2 reg, no murmur, positive posterior tibial pulse bilateral, Lungs: CTA bilateral, no rhonchi, no rales , no accessory muscle use Abdominal: soft, nontender to palpation, no guarding, no appreciable organomegaly Ext: no gross muscle atrophy, no edema, no contractures Neuro: CN II-XI grossly intact, no focal neuro deficits Psych: Alert, oriented, appropriate affect Post-op Pain - start Mobic - [place] - Reassess Post op urinary retention - stop felix - Assess for urinary retention Leukocytosis - reactive - CBC in 3-5 days - order left on chart HLD - Lipitor HTN - cozaar Nurse to alert me if issues with retention after felix discontinued, if no issue the medically would be optimized for discharge. Thank you for allowing us to participate in the care of this pleasant patient. Do not hesitate to contact us with questions. Someone can be reached from the [facility] hospitalist group all hours of the day at [phone] or via perfect serve. Objective - Vital Signs Vital signs: Vital Signs Temp 98.6 F 09/13/19 07:17 Pulse 91 09/13/19 07:17 Resp 18 09/13/19 07:17 BP 105/66 09/13/19 07:17 Pulse Ox 92 L 09/13/19 07:17 Intake & Output 09/12/19 09/13/19 09/13/19 18:59 06:59 18:59 Intake Total 1851 Output Total 835 475 Balance 1016 -475 Weight 92 kg 92 kg Intake: IV 1851 Output: Urine 800 475 Estimated Blood Loss 35 Other: Voiding Method Indwelling Catheter Indwelling Catheter - Labs CBC & Chem 7: 09/13/19 06:55 Labs: Abnormal Lab Results - Last 24 Hours (Table) 09/13/19 Range/Units 06:55 WBC 18.7 H (3.8-10.6) k/uL RBC 4.09 L (4.30-5.90) m/uL Neutrophils # 16.6 H (1.3-7.7) k/uL
--- NOTE | 2019-09-13 10:38 | P.ANPRN ---
Procedure Note - Anesthesia - Nerve Block Performed Right Adductor Canal Infusion Time Out Performed: Yes Date of Procedure: 09/12/19 Procedure Start Time: :29 Procedure Stop Time: :46 Location of Patient: PreOp Indication: Acute Post-Operative Pain, Requested by Surgeon Sedation Type: Sedate with meaningful contact maintained Preparation: Sterile Prep, Sterile Dressing Position: Supine Catheter: Indwelling Needle Types: Pajunk Needle Gauge: 21 Ultrasound used to visualize needle placement: Yes Ultrasound used to observe medication spread: Yes Blood Aspirated: No Pain Paresthesia on Injection Noted: No Resistance on Injection: Normal Image Stored and Saved: Yes Events: Uneventful and Well Tolerated (ropi .5% 20cc plus dexamethasone 4 mg)
--- NOTE | 2019-09-13 10:40 | P.PN ---
Progress Note - Text 09/13/19 652am 74-year-old male status post total knee replacement. Patient seen and evaluated this morning patient has an On-Q pump for postop pain control with the solution running at 8 mL an hour with a VAS of 3 and to continue On-Q pump infusion
[2019-09-13 11:02] VITALS: BP 106/69; PULSE 80; RESP 16; TEMP 98
--- NOTE | 2019-09-13 12:38 | P.PN ---
Subjective Progress Note Date: 09/13/19 Principal diagnosis: Status post right total knee arthroplasty Patient is doing well at this time, his pain is well-controlled. He did well with physical therapy. Denies any headaches or chest pain at this time. Denies any shortness of breath. Objective - Vital Signs Vital signs: Vital Signs Temp 98.0 F 09/13/19 11:01 Pulse 80 09/13/19 11:01 Resp 16 09/13/19 11:01 BP 106/69 09/13/19 11:01 Pulse Ox 93 L 09/13/19 11:01 Intake & Output 09/12/19 09/13/19 09/13/19 18:59 06:59 18:59 Intake Total 1851 Output Total 835 475 700 Balance 1016 -475 -700 Weight 92 kg 92 kg Intake: IV 1851 Output: Urine 800 475 700 Uretheral (Cisneros) 350 Estimated Blood Loss 35 Other: Voiding Method Indwelling Catheter Indwelling Catheter - Exam Right lower extremity: Incision is clean, dry, and intact. The foam dressing is in good condition. There is minimal soft tissue swelling and ecchymosis surrounding the medial and lateral aspects of the incision. Calf is soft, no tenderness with palpation. Plantar flexion, dorsiflexion, EHL, FHL are intact. Sensory exam to light touch throughout the extremity is intact, dorsal pedis pulses 2+. - Labs CBC & Chem 7: 09/13/19 06:55 Labs: Abnormal Lab Results - Last 24 Hours (Table) 09/13/19 Range/Units 06:55 WBC 18.7 H (3.8-10.6) k/uL RBC 4.09 L (4.30-5.90) m/uL Neutrophils # 16.6 H (1.3-7.7) k/uL Assessment and Plan Assessment: Status post right total knee arthroplasty Plan: pain control, plan for discharge home on oral medication GI and DVT prophylaxis, aspirin 81 mg twice a day after discharge Wound care instructions discussed/icing and elevating techniques discussed Home physical therapy and nursing after discharge Medical recommendations Plan for discharge home today Time with Patient: Less than 30
--- NOTE | 2019-09-13 12:40 | P.DS ---
Providers Date of admission: 09/12/2019 Attending physician: Hu Flaherty Consults: 09/12/19 15:02 Consult Physician Routine Consulting Provider: Audelia Tsai Consult Reason/Comments: Medical management Do you want consulting provider notified?: Yes Primary care physician: Kaley Andres Hospital Course: Date of admission: 09/12/2019 Date of discharge: 09/13/2019 Admission diagnosis: Status post right total knee arthroplasty Discharge diagnosis: Same Attending physician: Dr. Flaherty Surgical procedures: Right total knee arthroplasty Brief history: Patient is a 74-year-old male with a history of with progressive primary right knee osteoarthritis. At this point patient has failed conservative treatment measures and has opted to proceed with a elective right total knee arthroplasty. Hospital course: Details of patient's surgery can be found in operative report. Patient tolerated the procedure well and was subsequently transported to orthopedic floor. Patient's orthopeidc and medical care was provided daily. Patient had daily laboratory tests performed for evaluation of overall blood counts. Patient had daily physical therapy to include strengthening range of motion as well as education with walker ambulation. Patient was treated with Lovenox for their postoperative DVT prophylaxis during their inpatient stay. Patient was noted to have a relatively uneventful postoperative course. Patient reported satisfactory pain control with oral pain medications by postoperative day 0. Patient showed satisfactory progress with physical therapy. Patient moved steadily through the program and had no difficulty meeting the goals by postoperative day 1. Given patient's otherwise satisfactory course and having met physical therapy goals, plan is to discharge patient home on postoperative day 1. Discharge condition/disposition: Patient will be discharged home in stable condition. Discharge medications: Instructions are given on resumption of patient's normal daily medications per primary care recommendation, in addition patient will be prescribed [place] 5 mg/325 mg, Colace 100 mg, aspirin 81 mg. Discharge instructions: 1. Wound care and infection precautions, keep incision dry and covered while showering, no lotions, creams, moisturizers. No soaking, tubs, pools, hottubs. Do not scrub over the incision. 2. Weight-bear as tolerated with walker / cane until follow-up. 3. Ice and elevate when necessary. Do not exceed 20 minutes per hour with ice pack. 4. Utilize compression sleeve until seen at first follow up appointment. 5. Visiting nursing care. 6. Home physical therapy including home CPM. 7. Pain meds and anticoagulants per prescription. 8. Pain medication has potential to cause constipation. Increase oral fluid and fiber intake. Contact primary care provider if you have not had a bowel movement within 48 hours after discharge 9. No anti-inflammatory medication until discussed at first post operative visit, this including Motrin, Aleve, Mobic, Diclofenac,. 10. Follow up in office at 2 weeks postop with Guanako Hicks PA-C 11. Follow up with your primary care doctor 7-10 days after discharge. 12. Contact [facility] with any questions, . Procedures: Right total knee arthroplasty Patient Condition at Discharge: Good Plan - Discharge Summary Discharge Rx Participant: Yes New Discharge Prescriptions: New Aspirin [Adult Low Dose Aspirin EC] 81 mg PO BID #60 tablet. Docusate [Colace] 100 mg PO DAILY #30 capsule Hydrocodone/Acetaminophen [[place] 5-325] 1 - 2 each PO Q6HR PRN #56 tab PRN Reason: Pain No Action Lansoprazole [Prevacid] 30 mg PO DAILY Atorvastatin [Lipitor] 40 mg PO DAILY Amitriptyline HCl [Elavil] 50 mg PO HS Losartan [Cozaar] 50 mg PO BID Magnesium 500 mg PO DAILY Discharge Medication List Atorvastatin [Lipitor] 40 mg PO DAILY 06/09/17 [History] Lansoprazole [Prevacid] 30 mg PO DAILY 06/09/17 [History] Amitriptyline HCl [Elavil] 50 mg PO HS 09/08/19 [History] Losartan [Cozaar] 50 mg PO BID 09/08/19 [History] Magnesium 500 mg PO DAILY 09/08/19 [History] Aspirin [Adult Low Dose Aspirin EC] 81 mg PO BID #60 tablet. 09/13/19 [Rx] Docusate [Colace] 100 mg PO DAILY #30 capsule 09/13/19 [Rx] Hydrocodone/Acetaminophen [[place] 5-325] 1 - 2 each PO Q6HR PRN #56 tab 09/13/19 [Rx] Follow up Appointment(s)/Referral(s): [facility] [NON-STAFF] - [facility], [NON-STAFF] - Sonny Hicks PAC [PHYSICIAN CAN MAKER] - 09/28/19 1:50 pm Kaley Andres MD [Primary Care Provider] - 09/21/19 11:20 am Activity/Diet/Wound Care/Special Instructions: Orthopedic Discharge Instructions: 1. Wound care and infection precautions, keep incision dry and covered while showering, no lotions, creams, moisturizers. No soaking, pools, hot tubs. Do not scrub over incision. 2. Weight-bear as tolerated with walker / cane until follow-up. 3. Ice and elevate when necessary. Do not exceed 20 minutes per hour with ice pack. 4. Utilize compression sleeve until seen at first follow up appointment. 5. Pain meds and anticoagulants per prescription. 6. Pain medication has potential to cause constipation. Increase oral fluid and fiber intake. Contact primary care provider if you have not had a bowel movement within 48 hours after discharge. 7. No anti-inflammatory medication until discussed at first post operative visit, this including Motrin, Aleve, Mobic, Diclofenac,. 8. Follow up in office at 2 weeks postop with Guanako Hicks PA-C 9. Follow up with your primary care doctor 7-10 days after discharge. 10. Contact [facility] with any questions, . Discharge Disposition: HOME WITH HOME HEALTH SERVICES
== END 2019-09-13 13:55 | disposition home health service (06) ==
LOC: OR 11:14 → 4SSUR 17:51 → OR 09-13 13:55
PROVIDERS: ATTEND Orthopaedic Surgery
DX: M17.11 Unilateral primary osteoarthritis, right knee (principal); R33.9 Retention of urine, unspecified; D72.829 Elevated white blood cell count, unspecified; I12.9 Hypertensive chronic kidney disease with stage 1 through stage 4 chronic kidney disease, or unspecified chronic kidney disease; N18.9 Chronic kidney disease, unspecified; E78.5 Hyperlipidemia, unspecified; K21.9 Gastro-esophageal reflux disease without esophagitis; N52.9 Male erectile dysfunction, unspecified; J98.4 Other disorders of lung; M19.90 Unspecified osteoarthritis, unspecified site; E83.42 Hypomagnesemia; E79.0 Hyperuricemia without signs of inflammatory arthritis and tophaceous disease; Z87.891 Personal history of nicotine dependence; Z86.19 Personal history of other infectious and parasitic diseases; Z79.899 Other long term (current) drug therapy; Z88.8 Allergy status to other drugs, medicaments and biological substances; Z80.9 Family history of malignant neoplasm, unspecified
CPT/HCPCS: 97110; 97161; 64448; 76942; 85025; 73560; 27447; C1776; C1713; J2250; J0171; J0360; J0690 ×3; J1885; J1650; J2795 ×2; J0735; J1170; 88300

== ENCOUNTER 2019-12-27 15:09 | Inpatient (IN) | payer MEDICARE, BC ==
[2019-12-27 15:55] LABS: Basophils # (A) 0.1 k/uL (0-0.2); Basophils % (A) 1 %; Eosinophils # (A) 0.1 k/uL (0-0.7); Eosinophils % (A) 1 %; HCT 43.2 % (39.0-53.0); HGB 14.7 gm/dL (13.0-17.5); Lymphocytes # (A) 1.6 k/uL (1.0-4.8); Lymphocytes % (A) 20 %; MCH 31.6 pg (25.0-35.0); MCHC 33.9 g/dL (31.0-37.0); MCV 93.1 fL (80.0-100.0); Mean Platelet Volume 9.2; Monocytes # (A) 0.4 k/uL (0-1.0); Monocytes % (A) 5 %; Neutrophils # (A) 5.7 k/uL (1.3-7.7); Neutrophils % (A) 72 %; Platelet Count 226 k/uL (150-450); RBC 4.64 m/uL (4.30-5.90); RDW 13.8 % (11.5-15.5)
[2019-12-27 16:09] LABS: ALT 24 U/L (4-49); AST 45 U/L (17-59); African American GFR (CKD) >90 (>60 ml/min/1.73 sqM); Albumin 3.9 g/dL (3.5-5.0); Alkaline Phosphatase 94 U/L (38-126); Anion Gap 8 mmol/L; Blood Urea Nitrogen 17 mg/dL (9-20); Calcium 7.4 mg/dL (8.4-10.2); Carbon Dioxide 27 mmol/L (22-30); Chloride 106 mmol/L (98-107); Glucose 77 mg/dL (74-99); INR 1.2 (<1.2); Non-African American GFR(CKD) 89 (>60 ml/min/1.73 sqM); Potassium 3.4 mmol/L (3.5-5.1); Prothrombin Time 11.9 sec (9.0-12.0); Sodium 141 mmol/L (137-145); Total Bilirubin 0.8 mg/dL (0.2-1.3); Total Protein 6.6 g/dL (6.3-8.2)
--- NOTE | 2019-12-27 16:11 | ED ---
General Adult HPI - General Chief complaint: Shortness of Breath Stated complaint: Difficulty in Breathing Time Seen by Provider: 12/27/19 15:12 Source: patient, RN notes reviewed, old records reviewed Mode of arrival: ambulatory Limitations: no limitations - History of Present Illness Initial comments: 74-year-old male presenting for evaluation of dyspnea. Patient was sent in by his primary care physician for evaluation of increased exertional dyspnea and orthopnea as well as paroxysmal nocturnal dyspnea. Patient has no history of CAD, no history of congestive heart failure. He is 3 months postoperative right knee replacement. He denies lower extremity pain or swelling. He states is quite active. He does follow with pulmonology and states he has had previous asbestos exposure. No history of asthma or COPD. He denies any chest pain over the past several months. No cough or fever. - Related Data Home Medications Medication Instructions Recorded Confirmed Atorvastatin [Lipitor] 40 mg PO DAILY 06/09/17 12/27/19 Lansoprazole [Prevacid] 30 mg PO DAILY 06/09/17 12/27/19 Amitriptyline HCl [Elavil] 50 mg PO HS 09/08/19 12/27/19 Losartan [Cozaar] 50 mg PO BID 09/08/19 12/27/19 Tadalafil [Cialis] 5 mg PO DAILY PRN 12/27/19 12/27/19 Allergies Allergy/AdvReac Type Severity Reaction Status Date / Time hydrochlorothiazide AdvReac Unknown Verified 12/27/19 16:07 Review of Systems ROS Statement: Those systems with pertinent positive or pertinent negative responses have been documented in the HPI. ROS Other: All systems not noted in ROS Statement are negative. Past Medical History Past Medical History: Hypertension Additional Past Medical History / Comment(s): shingles, asbestos in his lungs History of Any Multi-Drug Resistant Organisms: None Reported Past Surgical History: No Surgical Hx Reported Past Psychological History: No Psychological Hx Reported Smoking Status: Never smoker Past Alcohol Use History: Occasional Past Drug Use History: None Reported General Exam Limitations: no limitations General appearance: alert, in no apparent distress Head exam: Present: atraumatic, normocephalic Eye exam: Present: normal appearance, PERRL ENT exam: Present: normal exam Neck exam: Present: normal inspection. Absent: tenderness, meningismus Respiratory exam: Present: decreased breath sounds. Absent: respiratory distress, wheezes, rales Cardiovascular Exam: Present: regular rate, normal rhythm GI/Abdominal exam: Present: soft. Absent: distended, tenderness, guarding Extremities exam: Present: normal inspection, normal capillary refill. Absent: pedal edema, calf tenderness Neurological exam: Present: alert, oriented X3, CN II-XII intact. Absent: motor sensory deficit Psychiatric exam: Present: normal affect, normal mood Skin exam: Present: warm, dry, intact. Absent: cyanosis, diaphoretic Course Vital Signs 12/27/19 12/27/19 15:12 16:04 Temperature 98.6 F Pulse Rate 104 H Respiratory 18 20 Rate Blood Pressure 162/97 O2 Sat by Pulse 95 Oximetry EKG Findings - EKG Comments: EKG Findings:: EKG: Sinus rhythm with PAC, no ST segment elevation, rate of 100, DC interval 162, QRS duration 84, QTC 454 Medical Decision Making - Medical Decision Making 74-year-old male presenting for evaluation of dyspnea, orthopnea, and PND. Patient's was sent in by primary care physician, rule out CHF, rule out pulmonary embolism with recent knee surgery. Workup was initiated, EKG is sinus rhythm without ST segment elevation. Patient has CT angiography showing bilateral pleural effusions, no pulmonary embolism. Patient has normal CBC, normal kidney function, his BNP is elevated 3400, and troponin is minimally elevated 0.036 with no active chest pain. He has a hypomagnesemia, hypokalemia and hypocalcemia. He is not currently on any diuretics. He will be admitted with new onset CHF. Case discussed with Dr. Kelly - Lab Data Result diagrams: 12/27/19 15:41 12/27/19 15:41 Lab Results 12/27/19 12/27/19 12/27/19 Range/Units 15:41 15:41 15:41 WBC 8.0 (3.8-10.6) k/uL RBC 4.64 (4.30-5.90) m/uL Hgb 14.7 (13.0-17.5) gm/dL Hct 43.2 (39.0-53.0) % MCV 93.1 (80.0-100.0) fL MCH 31.6 (25.0-35.0) pg MCHC 33.9 (31.0-37.0) g/dL RDW 13.8 (11.5-15.5) % Plt Count 226 (150-450) k/uL MPV 9.2 Neutrophils % 72 % Lymphocytes % 20 % Monocytes % 5 % Eosinophils % 1 % Basophils % 1 % Neutrophils # 5.7 (1.3-7.7) k/uL Lymphocytes # 1.6 (1.0-4.8) k/uL Monocytes # 0.4 (0-1.0) k/uL Eosinophils # 0.1 (0-0.7) k/uL Basophils # 0.1 (0-0.2) k/uL PT 11.9 (9.0-12.0) sec INR 1.2 H (<1.2) APTT 26.0 (22.0-30.0) sec Sodium 141 (137-145) mmol/L Potassium 3.4 L (3.5-5.1) mmol/L Chloride 106 (98-107) mmol/L Carbon Dioxide 27 (22-30) mmol/L Anion Gap 8 mmol/L BUN 17 (9-20) mg/dL Creatinine 0.78 (0.66-1.25) mg/dL Est GFR (CKD-EPI)AfAm >90 (>60 ml/min/1.73 sqM) Est GFR (CKD-EPI)NonAf 89 (>60 ml/min/1.73 sqM) Glucose 77 (74-99) mg/dL Calcium 7.4 L (8.4-10.2) mg/dL Magnesium 0.9 L* (1.6-2.3) mg/dL Total Bilirubin 0.8 (0.2-1.3) mg/dL AST 45 (17-59) U/L ALT 24 (4-49) U/L Alkaline Phosphatase 94 (38-126) U/L Troponin I (0.000-0.034) ng/mL NT-Pro-B Natriuret Pep pg/mL Total Protein 6.6 (6.3-8.2) g/dL Albumin 3.9 (3.5-5.0) g/dL 12/27/19 12/27/19 Range/Units 15:41 15:41 WBC (3.8-10.6) k/uL RBC (4.30-5.90) m/uL Hgb (13.0-17.5) gm/dL Hct (39.0-53.0) % MCV (80.0-100.0) fL MCH (25.0-35.0) pg MCHC (31.0-37.0) g/dL RDW (11.5-15.5) % Plt Count (150-450) k/uL MPV Neutrophils % % Lymphocytes % % Monocytes % % Eosinophils % % Basophils % % Neutrophils # (1.3-7.7) k/uL Lymphocytes # (1.0-4.8) k/uL Monocytes # (0-1.0) k/uL Eosinophils # (0-0.7) k/uL Basophils # (0-0.2) k/uL PT (9.0-12.0) sec INR (<1.2) APTT (22.0-30.0) sec Sodium (137-145) mmol/L Potassium (3.5-5.1) mmol/L Chloride (98-107) mmol/L Carbon Dioxide (22-30) mmol/L Anion Gap mmol/L BUN (9-20) mg/dL Creatinine (0.66-1.25) mg/dL Est GFR (CKD-EPI)AfAm (>60 ml/min/1.73 sqM) Est GFR (CKD-EPI)NonAf (>60 ml/min/1.73 sqM) Glucose (74-99) mg/dL Calcium (8.4-10.2) mg/dL Magnesium (1.6-2.3) mg/dL Total Bilirubin (0.2-1.3) mg/dL AST (17-59) U/L ALT (4-49) U/L Alkaline Phosphatase (38-126) U/L Troponin I 0.036 H* (0.000-0.034) ng/mL NT-Pro-B Natriuret Pep 3400 pg/mL Total Protein (6.3-8.2) g/dL Albumin (3.5-5.0) g/dL Disposition Clinical Impression: Congestive heart failure, Hypomagnesemia, Elevated troponin Disposition: ADMITTED IP TO THIS HOSP Condition: Stable Is patient prescribed a controlled substance at d/c from ED?: No Referrals: Kaley Andres MD [Primary Care Provider] - 1-2 days Decision to Admit Reason: Admit from EC Decision Date: 12/27/19 Decision Time: 17:31
[2019-12-27 16:16] LABS: Magnesium 0.9 mg/dL (1.6-2.3)
[2019-12-27] MEDS ORDERED: MAGNESIUM SULFATE-D5W PMX 1 GM in DEXTROSE/WATER 1 100ML.BAG IVPB ONE (16:18)
[2019-12-27] MEDS ORDERED: POTASSIUM CHLORIDE ER 20 MEQ TAB.ER PO STA ×2 (16:19→18:14)
--- NOTE | 2019-12-27 17:09 | CT ---
EXAMINATION TYPE: CT angio chest DATE OF EXAM: 12/27/2019 4:49 PM COMPARISON: 07/27/2019. HISTORY: SOB x2 months CT DLP: 460 mGycm Automated exposure control for dose reduction was used. CONTRAST: CTA scan of the thorax is performed with IV Contrast, patient injected with 80 mL of Isovue 370, pulm onary embolism protocol. MIP images are created and reviewed. FINDINGS: LUNGS: There are moderate bilateral pleural effusions with bibasilar platelike opacities, most compat ible with atelectasis. No pneumothorax or suspicious pulmonary nodules. MEDIASTINUM: There is satisfactory enhancement of the pulmonary artery and its branches, there is no CT evidence for pulmonary embolism. There are scattered a few borderline prominent mediastinal lymph nodes, likely reactive. No pericardial effusion is seen. OTHER: No additional significant abnormality is seen. IMPRESSION: NO ACUTE PULMONARY EMBOLUS. MODERATE BILATERAL PLEURAL EFFUSIONS WITH BIBASILAR OPACITIES, MOST COMPATIBLE WITH ATELECTASIS. SUPE RIMPOSED INFILTRATE IS BETTER EXCLUDED CLINICALLY. Findings are atypical of Covid pneumonia.
[2019-12-27] MEDS ORDERED: HEPARIN SODIUM,PORCINE 5,000 UNIT/ML 1 ML VIAL IV ONE (17:20)
[2019-12-27] MEDS ORDERED: HEPARIN SODIUM,PORCINE 5,000 UNIT/ML 1 ML VIAL IV PRN (17:20)
[2019-12-27] MEDS ORDERED: NALOXONE 0.4 MG/ML 1 ML VIAL IV PRN (17:26)
[2019-12-27] MEDS ORDERED: HEPARIN SOD,PORK IN 0.45% NACL 25,000 UNIT in 0.45% NACL 1 250ML.BAG IV SCH (17:30)
[2019-12-27] MEDS ORDERED: ASPIRIN 81 MG PO STA (18:15)
--- NOTE | 2019-12-27 18:15 | P.HPIM ---
History of Present Illness H&P Date: 12/27/19 Patient is a 74-year-old male with a PMH of hypertension and hyperlipidemia who was sent to the emergency room by her PMD due to shortness of breath. The patient reports that over the past 2 months, he has had increasing difficulty laying flat in bed and has been waking up multiple times a night to catch his breath. He denied any prior history of heart disease. Reports that he has never had such symptoms the past. He notes that he has been sleeping in a recliner with his legs down since otherwise he is unable to catch his breath and sleep. Also reports exertional dyspnea with one flight of stairs. Reports that most of his life he had been fairly active and that this is very unusual for him. Reported some intermittent episodes of chest pain 3 months ago but none since the onset of his symptoms. Denied lower extremity swelling. Also denied palpitations, nausea, vomiting, diaphoresis. Denied shortness of breath at rest. Denied fever, chills, cough, abdominal pain, diarrhea. Patient underwent an extensive evaluation in the emergency room with chest CTA that revealed moderate bilateral pleural effusions. EKG revealed sinus rhythm with T-wave flattening in leads V5, V6, lead I, and aVF. Laboratory evaluation revealed a troponin of 0.036, proBNP 3400, magnesium 0.9, and potassium of 3.4. Review of Systems Pertinent positives and negatives as discussed in HPI, a complete review of systems was performed and all other systems are negative. Past Medical History Past Medical History: Hypertension Additional Past Medical History / Comment(s): shingles, asbestos in his lungs History of Any Multi-Drug Resistant Organisms: None Reported Past Surgical History: No Surgical Hx Reported Past Psychological History: No Psychological Hx Reported Smoking Status: Never smoker Past Alcohol Use History: Occasional Past Drug Use History: None Reported Medications and Allergies Home Medications Medication Instructions Recorded Confirmed Type Atorvastatin [Lipitor] 40 mg PO DAILY 06/09/17 12/27/19 History Lansoprazole [Prevacid] 30 mg PO DAILY 06/09/17 12/27/19 History Amitriptyline HCl [Elavil] 50 mg PO HS 09/08/19 12/27/19 History Losartan [Cozaar] 50 mg PO BID 09/08/19 12/27/19 History Tadalafil [Cialis] 5 mg PO DAILY PRN 12/27/19 12/27/19 History Allergies Allergy/AdvReac Type Severity Reaction Status Date / Time hydrochlorothiazide AdvReac Unknown Verified 12/27/19 16:07 Physical Exam Vitals: Vital Signs Temp Pulse Resp BP Pulse Ox 12/27/19 16:04 20 12/27/19 15:12 98.6 F 104 H 18 162/97 95 Intake and Output 12/27/19 12/27/19 12/27/19 06:59 14:59 22:59 Other: Weight 89.811 kg General: non toxic, no distress, appears at stated age, obese Derm: no unusual rashes/lesions no unusual ecchymoses, warm, dry Head: atraumatic, normocephalic, symmetric Eyes: EOMI, no lid lag, anicteric sclera, pupils equal round reactive to light ENT: Nose and ears atraumatic, no thrush, no pharyngeal erythema Neck: No thyromegaly, no cervical lymphadenopathy, trachea midline, supple Mouth: no lip lesion, mucus membranes moist Cardiovascular: S1S2 reg, no murmur, positive posterior tibial pulse bilateral, no edema, capillary refill less than 2 seconds Lungs: Bibasilar rales, no rhonchi or wheezing, no accessory muscle use Abdominal: soft, nontender to palpation, no guarding, no appreciable organomegaly, normal bowel sounds Ext: no gross muscle atrophy, muscle strength 5 out of 5 in all 4 extremities grossly, no contractures, Neuro: CN II-XI grossly intact, light touch intact all 4 extremities, finger to nose within normal limits, Psych: Alert, oriented, appropriate affect Results CBC & Chem 7: 12/27/19 15:41 12/27/19 15:41 Labs: Abnormal Lab Results - Last 24 Hours (Table) 12/27/19 12/27/19 12/27/19 Range/Units 15:41 15:41 15:41 INR 1.2 H (<1.2) Potassium 3.4 L (3.5-5.1) mmol/L Calcium 7.4 L (8.4-10.2) mg/dL Magnesium 0.9 L* (1.6-2.3) mg/dL Troponin I 0.036 H* (0.000-0.034) ng/mL Assessment and Plan Plan: NSTEMI with newly diagnosed CHF -Continue with heparin infusion -Continue with aspirin and statin -Lasix 40 mg IV every 12 hourly -Echocardiogram -Trend troponin -Cardiac monitoring -Cardiology consult Hypomagnesemia and hypokalemia -Replace and monitor Chronic conditions: Hypertension, hyperlipidemia -Continue with home medications DVT prophylaxis -Heparin infusion The patient is admitted with an anticipated greater than 2 midnight stay for evaluation of NSTEMI CODE STATUS: Full Code Discussed with: patient Anticipated discharge date: 2-[address]: home A total of 40 minutes was spent on the care of this complex patient more than 50% of the time was spent in counseling and care coordination.
[2019-12-27] MEDS: LOSARTAN 50 MG TAB PO SCH (20:52)
[2019-12-27] MEDS: ATORVASTATIN 80 MG TAB PO SCH (20:52)
[2019-12-27] MEDS: FUROSEMIDE 10 MG/ML 4 ML VIAL IV SCH (20:52)
[2019-12-28 08:15] LABS: Basophils % (A) 1 %; Eosinophils # (A) 0.1 k/uL (0-0.7); Eosinophils % (A) 2 %; HCT 42.9 % (39.0-53.0); HGB 14.1 gm/dL (13.0-17.5); Lymphocytes # (A) 1.8 k/uL (1.0-4.8); Lymphocytes % (A) 26 %; MCH 31.2 pg (25.0-35.0); MCHC 32.9 g/dL (31.0-37.0); MCV 94.6 fL (80.0-100.0); Mean Platelet Volume 8.9; Monocytes # (A) 0.4 k/uL (0-1.0); Monocytes % (A) 6 %; Neutrophils # (A) 4.4 k/uL (1.3-7.7); Neutrophils % (A) 65 %; Platelet Count 217 k/uL (150-450); RBC 4.54 m/uL (4.30-5.90); WBC 6.8 k/uL (3.8-10.6)
[2019-12-28] MEDS ORDERED: NITROGLYCERIN SL TABS 0.4 MG TAB SUBLINGUAL PRN ×2 (08:55→15:56)
[2019-12-28] MEDS ORDERED: ASPIRIN 325 MG TAB PO STA (08:55)
[2019-12-28] MEDS ORDERED: ALPRAZolam 0.25 MG TAB PO PRN (08:55)
[2019-12-28] MEDS ORDERED: ALPRAZolam 0.5 MG TAB PO PRN (08:55)
[2019-12-28] MEDS ORDERED: ASPIRIN 81 MG PO SCH (09:00)
[2019-12-28 09:10] LABS: African American GFR (CKD) >90 (>60 ml/min/1.73 sqM); Anion Gap 9 mmol/L; Blood Urea Nitrogen 18 mg/dL (9-20); Calcium 7.5 mg/dL (8.4-10.2); Carbon Dioxide 26 mmol/L (22-30); Chloride 106 mmol/L (98-107); Glucose 100 mg/dL (74-99); Magnesium 1.1 mg/dL (1.6-2.3); Non-African American GFR(CKD) 84 (>60 ml/min/1.73 sqM); Potassium 3.6 mmol/L (3.5-5.1); Sodium 141 mmol/L (137-145)
[2019-12-28] MEDS: PANTOPRAZOLE 40 MG TABLET PO SCH (09:31)
[2019-12-28] MEDS: LOSARTAN 50 MG TAB PO SCH ×2 (09:31→20:10)
[2019-12-28] MEDS: SODIUM CHLORIDE 0.9% 1,000 ML IV SCH (09:32)
[2019-12-28] MEDS: FUROSEMIDE 10 MG/ML 4 ML VIAL IV SCH (09:32)
[2019-12-28] MEDS ORDERED: Magnesium Replacement Protocol 1 EACH MISC MISCELLANE PRN (09:44)
--- NOTE | 2019-12-28 09:49 | P.CRDCN ---
History of Present Illness History of present illness: HISTORY OF PRESENTING ILLNESS This is a pleasant 74-year-old male past medical history significant for hypertension and asbestos in his lungs. He does not follow regularly in the office with a label remover. We have been asked to see in consultation for shortness of breath. He states for the previous 2 months he has noticed increased overall fatigue, dyspnea with exertion, PND and orthopnea. 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 Over the previous few weeks his breathing has become labored specifically at night when he lays down flat he has to sleep sitting up and he frequently wakes up to the night short of breath. Yesterday he was unable to even sit in recline mildly in his chair without feeling short of breath. On arrival to the emergen cy department he did receive a dose of IV Lasix and he states last night he slept better than he slept in the last 2 months. He denies having symptoms of chest discomfort, dizziness or palpitations. He was seen in the office in [address] Mishra secondary to coronary calcifications noted on a computed tomography scan of his chest that was found incidentally. He underwent a stress test where he walked for 7 minutes and had no evidence of stress-induced ischemia. He also had an echocardiogram in 2016 revealing preserved LV systolic function with ejection fraction 55%. DIAGNOSTICS EKG reveals sinus mechanism with sinus arrhythmia and nonspecific abnormalities with no significant ST or T-wave ischemic changes. CT of the chest is negative for pulmonary embolism, moderate bilateral pleural effusions with bibasilar opacity is noted, superimposed infiltrate is possible. Laboratory reviewed, CBC unremarkable, sodium 141, potassium 3.6 up from 3.4 on admission and after supplementation, creatinine 0.89, magnesium on admission 0.9 repeat today 1.1 after supplementation, troponin 0.036, 0.044 and 0.046, and T proBNP 3400. Current cardiac medications include atorvastatin 40 mg daily and losartan 50 mg twice a day. REVIEW OF SYSTEMS At the time of my exam: CONSTITUTIONAL: Denies fever or chills. CARDIOVASCULAR: Denies chest pain, shortness of breath, orthopnea, PND or palpitations. RESPIRATORY: Denies cough. GASTROINTESTINAL: Denies abdominal pain, diarrhea, constipation, nausea or vomiting. MUSCULOSKELETAL: Denies myalgias. NEUROLOGIC: Denies numbness, tingling or weakness. ENDOCRINE: Denies fatigue, weight change, polydipsia or polyurina. GENITOURINARY: Denies burning, hematuria or urgency with micturation. HEMATOLOGIC: Denies history of anemia or bleeding. PHYSICAL EXAMINATION Blood pressure 126/77 heart rate 84 afebrile and maintaining oxygen saturation on room air. CONSTITUTIONAL: No apparent distress. HEENT: Head is normocephalic. Pupils are equal, round. Sclerae anicteric. Mucous membranes of the mouth are moist. No JVD. No carotid bruit. CHEST EXAMINATION: Faint bibasilar fine rales. No wheezes or rhonchi. No chest wall tenderness is noted on palpation or with deep breathing. HEART EXAMINATION: Regular rate and rhythm. S1, S2 heard. Systolic ejection murmur at the base and positive S3 gallop. No rub. ABDOMEN: Soft, nontender. Positive bowel sounds. EXTREMITIES: 2+ peripheral pulses, no lower extremity edema and no calf tenderness. NEUROLOGIC EXAMINATION: Patient is awake, alert and oriented x3. ASSESSMENT Non-ST elevated myocardial infarction Acute heart failure, likely diastolic. Awaiting repeat echo. Hypertension Hypomagnesemia Hypokalemia, improved Former nicotine dependence History of asbestos in the lungs secondary to exposure PLAN Obtain 2-D echocardiogram and Doppler study to assess cardiac structure and function. Recommend proceeding with cardiac catheterization to assess for underlying coronary artery disease. I have discussed the risks, benefits and alternative therapies for the above-mentioned procedure and for both sedation/analgesia as well as necessary blood product administration, if indicated, as they pertain to this patient. The patient has indicated understanding and acceptance of the risks and procedures discussed. Questions have been answered appropriately and he is agreeable to move forward with the above-stated procedure. Replace magnesium per protocol. Initiate Lopressor 25 mg twice a day. Continue IV Lasix. Continue losartan and atorvastatin as previously ordered. Repeat BMP in the morning. Document accurate intake and output along with daily weights. Further recommendations to follow based upon clinical course. Thank you kindly for this consultation. Nurse Practitioner note has been reviewed, I agree with a documented findings and plan of care. Patient was seen and examined. Past Medical History Past Medical History: Hypertension Additional Past Medical History / Comment(s): shingles not recent, asbestos in his lungs History of Any Multi-Drug Resistant Organisms: None Reported Past Surgical History: No Surgical Hx Reported Past Anesthesia/Blood Transfusion Reactions: No Reported Reaction Smoking Status: Former smoker Medications and Allergies Home Medications Medication Instructions Recorded Confirmed Type Atorvastatin [Lipitor] 40 mg PO DAILY 06/09/17 12/27/19 History Lansoprazole [Prevacid] 30 mg PO DAILY 06/09/17 12/27/19 History Amitriptyline HCl [Elavil] 50 mg PO HS 09/08/19 12/27/19 History Losartan [Cozaar] 50 mg PO BID 09/08/19 12/27/19 History Tadalafil [Cialis] 5 mg PO DAILY PRN 12/27/19 12/27/19 History Allergies Allergy/AdvReac Type Severity Reaction Status Date / Time hydrochlorothiazide AdvReac Unknown Verified 12/27/19 16:07 Physical Exam Vitals: Vital Signs Temp Pulse Pulse Resp BP BP Pulse Ox 12/28/19 04:00 97.9 F 84 17 126/77 96 12/27/19 23:32 97.6 F 82 18 128/78 93 L 12/27/19 20:30 97.8 F 98 19 145/95 96 12/27/19 19:43 98.1 F 99 16 134/80 94 L 12/27/19 18:36 98 F 100 18 161/108 98 12/27/19 16:14 96 18 165/107 96 12/27/19 16:04 20 12/27/19 15:12 98.6 F 104 H 18 162/97 95 Intake and Output 12/27/19 12/28/19 12/28/19 22:59 06:59 14:59 Output Total 600 Balance -600 Output: Urine 600 Other: Voiding Method Toilet Toilet Weight 89.811 kg 88.6 kg Results 12/28/19 07:41 12/28/19 07:41 Cardiac Enzymes 12/27/19 12/27/19 12/27/19 Range/Units 15:41 15:41 18:51 AST 45 (17-59) U/L Troponin I 0.036 H* 0.044 H* (0.000-0.034) ng/mL 12/27/19 Range/Units 21:47 AST (17-59) U/L Troponin I 0.046 H* (0.000-0.034) ng/mL Coagulation 12/27/19 12/27/19 12/28/19 Range/Units 15:41 23:57 07:41 PT 11.9 (9.0-12.0) sec APTT 26.0 52.2 H 56.2 H (22.0-30.0) sec CBC 12/27/19 12/28/19 Range/Units 15:41 07:41 WBC 8.0 6.8 (3.8-10.6) k/uL RBC 4.64 4.54 (4.30-5.90) m/uL Hgb 14.7 14.1 (13.0-17.5) gm/dL Hct 43.2 42.9 (39.0-53.0) % Plt Count 226 217 (150-450) k/uL Comprehensive Metabolic Panel 12/27/19 12/28/19 Range/Units 15:41 07:41 Sodium 141 141 (137-145) mmol/L Potassium 3.4 L 3.6 (3.5-5.1) mmol/L Chloride 106 106 (98-107) mmol/L Carbon Dioxide 27 26 (22-30) mmol/L BUN 17 18 (9-20) mg/dL Creatinine 0.78 0.89 (0.66-1.25) mg/dL Glucose 77 100 H (74-99) mg/dL Calcium 7.4 L 7.5 L (8.4-10.2) mg/dL AST 45 (17-59) U/L ALT 24 (4-49) U/L Alkaline Phosphatase 94 (38-126) U/L Total Protein 6.6 (6.3-8.2) g/dL Albumin 3.9 (3.5-5.0) g/dL Current Medications Generic Name Dose Route Start Last Admin Trade Name Freq PRN Reason Stop Dose Admin Alprazolam 0.25 mg 12/28/19 08:55 Alprazolam 0.25 Mg Tab PO Q6HR PRN Mild Anxiety Alprazolam 0.5 mg 12/28/19 08:55 Alprazolam 0.5 Mg Tab PO Q6HR PRN Moderate Anxiety Aspirin 81 mg 12/29/19 09:00 Aspirin 81 Mg PO DAILY WENDI Atorvastatin Calcium 80 mg 12/27/19 21:00 12/27/19 20:52 Atorvastatin 80 Mg Tab PO 80 mg HS WENDI Administration Furosemide 40 mg 12/27/19 21:00 12/28/19 09:32 Furosemide 10 Mg/Ml 4 Ml Vial IV 40 mg Q12HR WENDI Administration Heparin Sodium (Porcine) 0 unit 12/27/19 17:20 Heparin Sodium,Porcine 5,000 Unit/Ml 1 Ml Vial IV PER PROTOCOL PRN Low PTT Protocol Heparin Sodium/Sodium Chloride 250 mls @ 9.879 mls/hr 12/27/19 17:30 12/27/19 17:52 25,000 unit/ Sodium Chloride IV 11 units/kg/hr .Q24H WENDI 9.879 mls/hr Administration Protocol 11 UNITS/KG/HR Sodium Chloride 1,000 mls @ 50 mls/hr 12/28/19 09:00 12/28/19 09:32 Saline 0.9% IV 50 mls/hr .Q20H WENDI Administration Losartan Potassium 50 mg 12/27/19 21:00 12/28/19 09:31 Losartan 50 Mg Tab PO 50 mg BID WENDI Administration Naloxone HCl 0.2 mg 12/27/19 17:26 Naloxone 0.4 Mg/Ml 1 Ml Vial IV Q2M PRN Opioid Reversal Nitroglycerin 0.4 mg 12/28/19 08:55 Nitroglycerin Sl Tabs 0.4 Mg Tab SUBLINGUAL Q5M PRN Chest Pain Pantoprazole Sodium 40 mg 12/28/19 09:00 12/28/19 09:31 Pantoprazole 40 Mg Tablet PO 40 mg DAILY WENDI Administration Intake and Output 12/27/19 12/28/19 12/28/19 22:59 06:59 14:59 Output Total 600 Balance -600 Output: Urine 600 Other: Voiding Method Toilet Toilet Weight 89.811 kg 88.6 kg 12/28/19 07:41 12/28/19 07:41
[2019-12-28] MEDS: MAGNESIUM SULFATE-D5W PMX 1 GM in DEXTROSE/WATER 1 100ML.BAG IVPB SCH ×3 (10:52→16:57)
[2019-12-28] MEDS: METOPROLOL TARTRATE 25 MG TAB PO SCH ×2 (10:52→20:10)
--- NOTE | 2019-12-28 11:40 | ECHOF ---
Referral Reason:CHF MEASUREMENTS -------- HEIGHT: 172.7 cm WEIGHT: 88.5 kg BP: 126/77 RVIDd: 3.5 cm (< 3.3) IVSd: 1.2 cm (0.6 - 1.1) LVIDd: 4.2 cm (3.9 - 5.3) LVPWd: 1.4 cm (0.6 - 1.1) IVSs: 1.4 cm LVIDs: 3.7 cm LVPWs: 2.0 cm LAESV Index (A-L): 26.19 ml/m Ao Diam: 3.1 cm (2.0 - 3.7) AV Cusp: 1.7 cm (1.5 - 2.6) MV EXCURSION: 15.856 mm (> 18.000) MV EF SLOPE: 76 mm/s (70 - 150) EPSS: 1.1 cm RAP: 5.00 mmHg RVSP: 56.93 mmHg FINDINGS -------- This was a technically adequate study. The left ventricular size is normal. There is mild concentric left ventricular hypertrophy. Overa ll left ventricular systolic function is moderate-severely impaired with, an EF between 30 - 35 %. Mid lateral LV wall motion is hypokinetic. Mid posterior LV wall motion is hypokinetic. Mid inf erior LV wall motion is hypokinetic. Mid inferoseptal LV wall motion is hypokinetic. Apical lat eral LV wall motion is hypokinetic. The right ventricle is mildly enlarged. Normal LA size by volume 22+/-6 ml/m2. The right atrial size is normal. Interatrial and interventricular septum intact. The aortic valve is trileaflet and appears structurally normal. There is no evidence of aortic regu rgitation. There is no evidence of aortic stenosis. Moderate mitral regurgitation is present. Moderate tricuspid regurgitation present. There is moderate to severe pulmonary hypertension. The right ventricular systolic pressure, as measured by Doppler, is 56.93mmHg. There is no pulmonic regurgitation present. The aortic root size is normal. IVC Not well visulized. There is a trivial pericardial effusion present. CONCLUSIONS -------- 1. The left ventricular size is normal. 2. There is mild concentric left ventricular hypertrophy. 3. Overall left ventricular systolic function is moderate-severely impaired with, an EF between 30 - 35 %. 4. Mid lateral LV wall motion is hypokinetic. 5. Mid posterior LV wall motion is hypokinetic. 6. Mid inferior LV wall motion is hypokinetic. 7. Mid inferoseptal LV wall motion is hypokinetic. 8. Apical lateral LV wall motion is hypokinetic. 9. The right ventricle is mildly enlarged. 10. Moderate mitral regurgitation is present. 11. Moderate tricuspid regurgitation present. 12. There is moderate to severe pulmonary hypertension. 13. The right ventricular systolic pressure, as measured by Doppler, is 56.93mmHg. 14. There is a trivial pericardial effusion present. PICKER PACKER: Karishma Nieto RDCS
[2019-12-28] MEDS ORDERED: HEPARIN SODIUM 1,000 UN/ML (10ML VL) ONE (14:45)
[2019-12-28] MEDS ORDERED: VERAPAMIL 2.5 MG/ML 2 ML AMP ONE (14:45)
[2019-12-28] MEDS ORDERED: LIDOCAINE 1% INJ 10MG/ML (20 ML MDV) ONE (14:45)
[2019-12-28] MEDS ORDERED: fentaNYL (PF) 50 MCG/ML 2 ML AMP ONE (14:47)
[2019-12-28] MEDS ORDERED: fentaNYL (PF) 50 MCG/ML 2 ML AMP IV ONE (15:01)
[2019-12-28] MEDS ORDERED: IV FLUID CONTINUATION 1,000 ML IV ONE (15:01)
[2019-12-28] MEDS ORDERED: MIDAZOLAM 2 MG/2 ML VIAL IVP ONE (15:10)
[2019-12-28] MEDS ORDERED: LIDOCAINE 1% INJ 10MG/ML (20 ML MDV) SQ ONE (15:10)
[2019-12-28] MEDS: VERAPAMIL SYRINGE (5 MG/10 ML) INTRAARTER ONE ×2 (15:15→15:30)
[2019-12-28] MEDS ORDERED: HEPARIN SODIUM 1,000 UN/ML (10ML VL) IV ONE (15:21)
[2019-12-28] MEDS ORDERED: CLOPIDOGREL 75 MG TAB ONE (15:25)
[2019-12-28] MEDS ORDERED: CLOPIDOGREL 75 MG TAB PO ONE (15:29)
[2019-12-28] MEDS ORDERED: NITROGLYCERIN 1000MCG/10ML SYRINGE INTRACORON ONE (15:30)
--- NOTE | 2019-12-28 15:36 | P.PN ---
Subjective Progress Note Date: 12/28/19 Patient is doing well today. He denies any shortness of breath or chest pain this morning. No acute events overnight reported by nursing staff. Objective - Vital Signs Vital signs: Vital Signs Temp 98.5 F 12/28/19 12:00 Pulse 72 12/28/19 12:00 Resp 18 12/28/19 12:00 BP 142/94 12/28/19 12:00 Pulse Ox 96 12/28/19 12:00 Intake & Output 12/27/19 12/28/19 12/28/19 18:59 06:59 18:59 Intake Total 0 Output Total 600 Balance -600 0 Weight 89.811 kg 88.6 kg Intake: Oral 0 Output: Urine 600 Other: Voiding Method Toilet - Exam General: The patient is awake and alert, in no distress Eye: there is normal conjunctiva bilaterally. Neck: The neck is supple, there is no JVD. Cardiovascular: Normal S1-S2, no S3-S4, no murmurs. Respiratory: Lungs clear to auscultation bilaterally Gastrointestinal: Abdomen is soft, nontender Musculoskeletal: There is no pedal edema. Neurological:. Speech is normal. Skin: Skin is warm and dry - Labs CBC & Chem 7: 12/28/19 07:41 12/28/19 07:41 Labs: Abnormal Lab Results - Last 24 Hours (Table) 12/27/19 12/27/19 12/27/19 Range/Units 15:41 15:41 15:41 INR 1.2 H (<1.2) APTT (22.0-30.0) sec Potassium 3.4 L (3.5-5.1) mmol/L Glucose (74-99) mg/dL Calcium 7.4 L (8.4-10.2) mg/dL Magnesium 0.9 L* (1.6-2.3) mg/dL Troponin I 0.036 H* (0.000-0.034) ng/mL 12/27/19 12/27/19 12/27/19 Range/Units 18:51 21:47 23:57 INR (<1.2) APTT 52.2 H (22.0-30.0) sec Potassium (3.5-5.1) mmol/L Glucose (74-99) mg/dL Calcium (8.4-10.2) mg/dL Magnesium (1.6-2.3) mg/dL Troponin I 0.044 H* 0.046 H* (0.000-0.034) ng/mL 12/28/19 12/28/19 Range/Units 07:41 07:41 INR (<1.2) APTT 56.2 H (22.0-30.0) sec Potassium (3.5-5.1) mmol/L Glucose 100 H (74-99) mg/dL Calcium 7.5 L (8.4-10.2) mg/dL Magnesium 1.1 L (1.6-2.3) mg/dL Troponin I (0.000-0.034) ng/mL Assessment and Plan Assessment: This is a 74-year-old male with past medical history noted below who presented to the emergency room with worsening shortness of breath and dyspnea. Patient was evaluated in the ER and admitted to the hospital for further management of his medical problems noted below. 1. Non-ST elevation ID, seen and evaluated by cardiology. Scheduled for left heart catheterization today. Treated medically with IV heparin. Lipitor, metoprolol, and aspirin added to his regimen. Echocardiogram showed ejection fraction of 30-35% with mild posterior, inferior, and inferior septal left ventricular wall hypokinesia 2. Acute systolic heart failure exacerbation, started on IV Lasix 40 mg twice daily. Repeat chest x-ray in the morning. 3. Essential hypertension, blood pressure within acceptable range. We will c ontinue to monitor 4. Worsening dyspnea, secondary to #1 and 2. As well as moderate bilateral ple ural effusion. CT angiogram in the emergency room negative for PE 5. Hypomagnesemia and hypokalemia, replaced
[2019-12-28] MEDS ORDERED: IOPAMIDOL-370 50ML BTL INJ ONE (15:45)
[2019-12-28] MEDS ORDERED: IOPAMIDOL-370 125ML BTL INJ ONE (15:45)
[2019-12-28] MEDS ORDERED: MAG HYDROX/AL HYDROX/SIMETH 30 ML CUP PO PRN (15:56)
[2019-12-28] MEDS ORDERED: RX INFO: IV CONTRAST WAS GIVEN 1 EACH MISC MISCELLANE PRN (15:56)
[2019-12-28] MEDS ORDERED: ZOLPIDEM 5 MG TAB PO PRN (15:56)
[2019-12-28] MEDS ORDERED: ATROPINE SULFATE 0.1 MG/ML 10ML SYRINGE IV PRN (15:56)
[2019-12-28] MEDS ORDERED: SODIUM CHLORIDE 0.9% 1,000 ML IV SCH (16:00)
--- NOTE | 2019-12-28 16:52 | PTCA ---
PERCUTANEOUSTRANS CORORONARY ANGIOGRAPHY Mr. Chaudhry is a 74-year-old male with a history of hypertension, hyperlipidemia, calcified coronary arteries, who presented with symptoms of congestive heart failure, troponin elevation, and impaired left ventricular systolic function with segmental wall motion abnormality. He underwent cardiac catheterization, was found to have significant obstructive disease involving the mid RCA. In view of that, recommendation made regarding angioplasty and stenting. The procedures, risks, and complication were discussed with the patient who is in full understanding and agreement. PROCEDURE: A 6-Danish FR4 guiding catheter introduced into the system, after cannulating the right coronary ostium, a 0.014 balanced medium weight J-wire was advanced across the lesion, positioned distally, then a 3.5 x 18 mm Xience Marielos stent was advanced, deployed and post-dilated at 16 atmospheres. Following that, the balloon was removed and a 3.75 x 15 mm NC Trek balloon was advanced and one inflation at 14 atmospheres was done. After the last inflation, after appropriate wait, the balloon and the guidewire were withdrawn back in the guiding catheter, images were obtained and repeated. Those images reveal stable successful stenting. At that point, the guiding catheter, the balloon and the guidewire were removed. Left ventriculogram was performed. Following that, catheter and sheath were removed. Hemostasis was obtained with deployment of a TR band. There was no immediate complication. Patient was returned to his room in stable condition. Of note, the patient had no chest discomfort, but he had EKG changes with the inflation that resulted in the procedure. He received 6000 units of intravenous heparin and his ACT was followed. He also received an oral loading dose of clopidogrel. RESULTS: Successful stenting of the proximal mid segment of the RCA with reduction of stenosis from 70% to 0%. RECOMMENDATION: Patient will be continued on aspirin, Plavix, beta jamal, LES inhibitors and statin. I am hopeful that we will see improvement in left ventricular systolic function. Those findings and recommendation were discussed with the patient and his family over the phone and they are full understanding and agreement. Duration of sedation is 40 minutes. MARIE / AVANI: [id number] /
--- NOTE | 2019-12-28 16:52 | CC ---
CARDIAC CATHETERIZATION REPORT Mr. Chaudhry is a 74-year-old male with known history of hypertension, hyperlipidemia, calcified coronary arteries, who presented with symptoms of progressive dyspnea and evidence of congestive heart failure. He had mild troponin elevation, evidence of cardiomyopathy that is different in 2017. In view of that, recommendation made regarding cardiac catheterization. The procedures, risks, and complication were discussed with the patient who is in full understanding and agreement. PROCEDURE: Patient was brought to the supervisor [facility] facility in a fasting semi-sedated state after receiving fentanyl and Benadryl and achieving moderate conscious sedated state. Using Xylocaine anesthesia and Seldinger technique, a 6-Comoran sheath was introduced in the right radial artery. Selective right and left coronary angiography performed using 5-Comoran 3.5 bend right and left Darrian catheter, multiple views of the coronary artery including hemiaxial views obtained. Following that, angioplasty and stenting was performed following that a 5-Comoran tight pigtail catheter was introduced in the left ventricle and a 30-degree CLAUDIO view of the left ventricle was obtained. Following that, catheter and sheath were removed. Hemostasis was obtained with deployment of a TR band. There was no immediate complication. Patient is returned to his room in stable condition. FINDINGS: FLUOROSCOPY: There was calcification involving the left anterior descending artery and the left circumflex. LEFT MAIN: This is a large-sized vessel, bifurcating into left circumflex, left anterior descending artery. Left main coronary artery has a 20% plaque proximally, the rest of the vessel has no high-grade stenosis. LEFT ANTERIOR DESCENDING ARTERY; This vessel gives rise to a moderately sized diagonal branch in the mid segment of the LAD. There is intimal disease up to 30% to 40% without any evidence of high-grade stenosis. The LAD tapers down in the distal third. LEFT CIRCUMFLEX: This is a nondominant vessel, large in caliber giving rise to 3 obtuse marginal branches. The third one is the largest in caliber, the left circumflex has diffuse intimal disease without any evidence of high-grade stenosis up to 20% to 30%. RIGHT CORONARY ARTERY: This is a large-sized vessel, bifurcating distally into PDA and posterolateral segment and branches. The right PDA reaches toward the inferoapical wall, the proximal and mid segment of the RCA has an eccentric lesion of 70%. The rest of the vessel has no high-grade stenosis. LEFT VENTRICULOGRAM: Left ventriculogram was performed in 30-degree CLAUDIO view and revealed inferior wall hypokinesis. Ejection fraction is 35%-40%. There was arrhythmia-induced mitral regurgitation. HEMODYNAMICS: There was no gradient across the aortic valve. The left ventricular end- diastolic pressure was 25-30 mmHg. CONCLUSION: 1. Calcified coronary arteries. 2. Significant disease in the proximal mid segment of the RCA. 3. Mild to moderate disease in the LAD and the left circumflex. 4. Moderately severely impaired left ventricular systolic function. RECOMMENDATION: In view of finding anatomy, recommended proceeding with angioplasty and stenting of the RCA. The procedures, risks, and complication were discussed with the patient who is in full understanding and agreement. MMODL / IJN: [id number] /
--- NOTE | 2019-12-28 16:57 | LTR ---
DATE OF SERVICE: 12/28/2019 RE: Moose Chaudhry Dear Dr. Andres; I had pleasure to perform cardiac catheterization and coronary angioplasty on Mr. Chaudhry at [facility] on December 28, 2019 and a full copy of the procedure note will be forwarded to you. In brief, he was found to have significant obstructive disease involving the proximal mid segment of the RCA and underwent successful stenting of that vessel. I am hopeful that this procedure will stabilize his status and I will keep you updated on his progress. Thank you again for allowing me to participate in this patient's care. Please feel free to call for any questions. Sincerely yours, MD MITUL QiuL / SEPIDEHN: [id number] /
[2019-12-28] MEDS: ATORVASTATIN 80 MG TAB PO SCH (20:10)
[2019-12-28] MEDS: FUROSEMIDE 20 MG TAB PO SCH (20:10)
[2019-12-29 03:32] VITALS: PULSE 84
[2019-12-29] MEDS: SODIUM CHLORIDE 0.9% 1,000 ML IV SCH (06:27)
--- NOTE | 2019-12-29 07:50 | XR ---
EXAMINATION TYPE: XR chest 2V DATE OF EXAM: 12/29/2019 COMPARISON: Prior chest x-ray 06/15/2017 HISTORY: Congestive heart failure TECHNIQUE: Frontal and lateral views of the chest are obtained. FINDINGS: Interstitium is increased. Cardiac mediastinal silhouette is not significantly changed. No evident pneumothorax. No sizable effusion. Aorta is dense. Prominent lung volumes with flattening th e hemidiaphragms suggests underlying COPD. IMPRESSION: Correlate for pulmonary venous hypertension and interstitial edema.
[2019-12-29 07:55] LABS: Basophils % (A) 0 %; Eosinophils # (A) 0.1 k/uL (0-0.7); Eosinophils % (A) 2 %; HCT 43.1 % (39.0-53.0); HGB 14.2 gm/dL (13.0-17.5); Lymphocytes # (A) 1.1 k/uL (1.0-4.8); Lymphocytes % (A) 15 %; MCH 31.3 pg (25.0-35.0); MCV 94.8 fL (80.0-100.0); Mean Platelet Volume 9.6; Monocytes # (A) 0.4 k/uL (0-1.0); Monocytes % (A) 6 %; Neutrophils # (A) 5.7 k/uL (1.3-7.7); Neutrophils % (A) 76 %; Platelet Count 218 k/uL (150-450); RBC 4.55 m/uL (4.30-5.90); RDW 13.9 % (11.5-15.5); WBC 7.5 k/uL (3.8-10.6)
[2019-12-29 08:12] LABS: African American GFR (CKD) >90 (>60 ml/min/1.73 sqM); Anion Gap 7 mmol/L; Blood Urea Nitrogen 15 mg/dL (9-20); Calcium 7.7 mg/dL (8.4-10.2); Carbon Dioxide 27 mmol/L (22-30); Chloride 105 mmol/L (98-107); Glucose 117 mg/dL (74-99); Magnesium 1.8 mg/dL (1.6-2.3); Non-African American GFR(CKD) 83 (>60 ml/min/1.73 sqM); Potassium 3.7 mmol/L (3.5-5.1); Sodium 139 mmol/L (137-145)
[2019-12-29] MEDS ORDERED: ASPIRIN 81 MG PO SCH (09:00)
[2019-12-29] MEDS ORDERED: CLOPIDOGREL 75 MG TAB PO SCH (09:00)
[2019-12-29] MEDS ORDERED: SPIRONOLACTONE 25 MG TAB PO SCH (09:00)
[2019-12-29] MEDS: METOPROLOL TARTRATE 25 MG TAB PO SCH (09:10)
[2019-12-29] MEDS: FUROSEMIDE 20 MG TAB PO SCH (09:10)
[2019-12-29] MEDS: LOSARTAN 50 MG TAB PO SCH (09:10)
[2019-12-29] MEDS: PANTOPRAZOLE 40 MG TABLET PO SCH (09:10)
--- NOTE | 2019-12-29 09:38 | P.DS ---
Providers Date of admission: 12/27/19 17:26 Expected date of discharge: 12/29/19 Attending physician: Yenifer Kelly MD Consults: 12/27/19 17:27 Consult Physician Routine Consulting Provider: Felipe Latham Consult Reason/Comments: New-onset CHF, troponin elevation Do you want consulting provider notified?: Yes 12/28/19 15:56 Consult Physician Routine Consulting Provider: [facility] Consult Reason/Comments: Post Interventional patient Do you want consulting provider notified?: Already Contacted Primary care physician: Kaley Andres [facility] Course: This is a 74-year-old male with past medical history noted below who presented to the emergency room with worsening shortness of breath and dyspnea. Patient was evaluated in the ER and admitted to the hospital for further management of his medical problems noted below. 1. Non-ST elevation NC, seen and evaluated by cardiology. Status post left heart catheterization with successful stenting of the proximal mid segment of the RCA. Continue optimal medical management Lipitor, spironolactone, metoprolol, Plavix, and aspirin added to his regimen. Echocardiogram showed ejection fraction of 30-35% with mild posterior, inferior, and inferior septal left ventricular wall hypokinesia 2. Acute systolic heart failure exacerbation, started on IV Lasix 40 mg twice daily. Good clinical improvement. Switch Lasix to 20 mg by mouth twice daily 3. Essential hypertension, blood pressure within acceptable range. 4. Worsening dyspnea, secondary to #1 and 2. As well as moderate bilateral pleural effusion. CT angiogram in the emergency room negative for PE 5. Hypomagnesemia and hypokalemia, replaced Patient will be discharged home in a stable condition. For further details ab out this hospitalization please refer to the electronic chart. Time spent on discharge > 30 minutes including counseling and coordination of care Patient Condition at Discharge: Stable Plan - Discharge Summary Discharge Rx Participant: No New Discharge Prescriptions: New Spironolactone [Aldactone] 25 mg PO DAILY #90 tab Aspirin 81 mg PO DAILY chew Furosemide [Lasix] 20 mg PO BID #180 tab Metoprolol Tartrate [Lopressor] 25 mg PO BID #180 tab Nitroglycerin Sl Tabs [Nitrostat] 0.4 mg SUBLINGUAL Q5M PRN #25 tab PRN Reason: Chest Pain Clopidogrel [Plavix] 75 mg PO DAILY #90 tab Magnesium Oxide 400 mg PO DAILY #30 tablet Continue Lansoprazole [Prevacid] 30 mg PO DAILY Amitriptyline HCl [Elavil] 50 mg PO HS Losartan [Cozaar] 50 mg PO BID Changed Atorvastatin [Lipitor] 80 mg PO DAILY #0 Discontinued Tadalafil [Cialis] 5 mg PO DAILY PRN PRN Reason: E.D. Discharge Medication List Lansoprazole [Prevacid] 30 mg PO DAILY 06/09/17 [History] Amitriptyline HCl [Elavil] 50 mg PO HS 09/08/19 [History] Losartan [Cozaar] 50 mg PO BID 09/08/19 [History] Aspirin 81 mg PO DAILY chew 12/29/19 [Rx] Atorvastatin [Lipitor] 80 mg PO DAILY #0 12/29/19 [Rx] Clopidogrel [Plavix] 75 mg PO DAILY #90 tab 12/29/19 [Rx] Furosemide [Lasix] 20 mg PO BID #180 tab 12/29/19 [Rx] Magnesium Oxide 400 mg PO DAILY #30 tablet 12/29/19 [Rx] Metoprolol Tartrate [Lopressor] 25 mg PO BID #180 tab 12/29/19 [Rx] Nitroglycerin Sl Tabs [Nitrostat] 0.4 mg SUBLINGUAL Q5M PRN #25 tab 12/29/19 [Rx] Spironolactone [Aldactone] 25 mg PO DAILY #90 tab 12/29/19 [Rx] Follow up Appointment(s)/Referral(s): Felipe Latham MD [STAFF PHYSICIAN] - 1 Week Kaley Andres MD [Primary Care Provider] - 3 Days Discharge Disposition: HOME SELF-CARE
--- NOTE | 2019-12-29 10:15 | PN ---
PROGRESS NOTE Mr. Chaudhry is a 74-year-old male who presented with symptoms of congestive heart failure, was found to have severe cardiomyopathy with segmental wall motion abnormality, underwent cardiac catheterization yesterday and was found to have significant disease involving the proximal segment of the mid RCA. Underwent stenting of that vessel. He is feeling much better today. His breathing is stable. He denies any chest pain. He denies any dizziness, palpitation. He denies any nausea. He continues to be in sinus mechanism. He continues to be at this time on aspirin once a day, Lipitor 80 mg daily, Plavix 75 mg daily, Lasix 20 mg twice a day, losartan 50 mg twice a day, metoprolol tartrate 25 mg twice a day, spironolactone 25 mg daily. PHYSICAL EXAMINATION: Blood pressure running in the 110s with a heart rate in the 80s. LUNGS: Clear. HEART: Regular rate and rhythm, S1, S2. No S3. No rub. ABDOMEN: Soft, nontender. EXTREMITIES: No edema, right radial pulse intact. EKG revealed no acute changes. LAB DATA: Revealed BUN and creatinine 15 and 0.9, potassium 3.7, hemoglobin of 14.2. IMPRESSION: 1. Ischemic cardiomyopathy with symptoms of congestive heart failure, improving. 2. Status post stenting of the RCA. 3. History of hypertension. 4. Hyperlipidemia. RECOMMENDATION: Patient should be able to be discharged home today and followed as an outpatient. His LV systolic function will be followed and depending on those findings, further recommendation will be made. MMODL / IJN: [id number] /
[2019-12-29 11:05] VITALS: BP 127/80; RESP 18; TEMP 98.2
== END 2019-12-29 11:10 | disposition home or self-care (01) | DRG 246 ==
LOC: EC 15:09 → 3SCARD 17:26
PROVIDERS: ADMIT Internal Medicine; ATTEND Internal Medicine
PROC: B2111ZZ Fluoroscopy of Multiple Coronary Arteries using Low Osmolar Contrast (ICD-10-PCS; principal; 2019-12-27)
PROC: 027034Z Dilation of Coronary Artery, One Artery with Drug-eluting Intraluminal Device, Percutaneous Approach (ICD-10-PCS; principal; 2019-12-27)
PROC: 4A023N7 Measurement of Cardiac Sampling and Pressure, Left Heart, Percutaneous Approach (ICD-10-PCS; principal; 2019-12-27)
DX: I21.4 Non-ST elevation (NSTEMI) myocardial infarction (principal); I50.23 Acute on chronic systolic (congestive) heart failure; I47.2 Ventricular tachycardia; I25.5 Ischemic cardiomyopathy; E83.51 Hypocalcemia; I11.0 Hypertensive heart disease with heart failure; I25.10 Atherosclerotic heart disease of native coronary artery without angina pectoris; E87.6 Hypokalemia; E83.42 Hypomagnesemia; E78.5 Hyperlipidemia, unspecified; I34.0 Nonrheumatic mitral (valve) insufficiency; Z77.090 Contact with and (suspected) exposure to asbestos; Z79.899 Other long term (current) drug therapy; Z87.891 Personal history of nicotine dependence; Z96.651 Presence of right artificial knee joint; Z88.8 Allergy status to other drugs, medicaments and biological substances; Z86.19 Personal history of other infectious and parasitic diseases
CPT/HCPCS: 36415; 71046; 71275; 80048; 80053; 83735; 83880; 84484; 85025; 85347; 85610; 85730; 93005; 93306; 93458; 96365; 96366; 96367; 99285

== ENCOUNTER → 2020-11-20 | Outpatient (CLI) | payer MEDICARE, BC ==
--- NOTE | 2020-11-20 13:27 | CT ---
EXAMINATION TYPE: CT chest wo con DATE OF EXAM: 11/20/2020 COMPARISON: 12/27/2019 HISTORY: Other disorders of lung CT DLP: 405.90 mGycm. Automated Exposure Control for Dose Reduction was Utilized. TECHNIQUE: CT scan of the thorax is performed without IV contrast. FINDINGS: LUNGS: Diffuse emphysematous changes. Subpleural 5 mm nodule posterior right lower lobe. No pleural e ffusion or pneumothorax. Biapical pleural thickening. No interstitial edema.. MEDIASTINUM: Lack of IV contrast is noted to limit evaluation for mediastinal and especially hilar ad enopathy. There are no definitive greater than 1 cm hilar or mediastinal lymph nodes. No cardiomega ly or pericardial effusion is seen. Coronary artery calcification and atherosclerotic change aorta. H eart size normal. OTHER: No additional significant abnormality is seen. IMPRESSION: 1. Diffuse COPD with 5 mm subpleural right lower lobe pulmonary nodule too small to characterize but likely benign. 2 diffuse coronary artery atherosclerotic disease.
== END | disposition home or self-care (01) ==
LOC: RADCTMAIN 12:41
PROVIDERS: ATTEND Internal Medicine Pulmonary Disease
DX: J44.9 Chronic obstructive pulmonary disease, unspecified (principal); I25.10 Atherosclerotic heart disease of native coronary artery without angina pectoris
CPT/HCPCS: 71250

== ENCOUNTER 2021-10-14 09:23 | Emergency (ER) | payer MEDICARE, BC ==
[2021-10-14 09:31] VITALS: RESP 16; TEMP 98.1
[2021-10-14] MEDS ORDERED: KETOROLAC 15 MG/ML 1 ML VIAL IM STA (09:50)
[2021-10-14] MEDS ORDERED: tiZANidine 4 MG TAB PO ONE (09:57)
[2021-10-14] MEDS ORDERED: DEXAMETHASONE SOD PHOSPHATE 10 MG/ML 1 ML VIAL IVP SCH (10:00)
--- NOTE | 2021-10-14 10:04 | ED ---
Neck Injury/Pain HPI - General Chief Complaint: Neck Pain/Injury Stated Complaint: chest pain Time Seen by Provider: 10/14/21 09:33 Source: patient, family, RN notes reviewed Mode of arrival: ambulatory Limitations: no limitations - History of Present Illness Initial Comments: This is a 76-year-old male who presents to the emergency department for neck p ain. Patient states this started 4 days ago. Denies any known injuries. Describes this as being right-sided. When the pain first occurred, he was unable to turn his neck. The pain has largely moved away from the neck and is now in the right shoulder, right arm, and right side of the mid back. Moving his arm exacerbates this pain. He has minor associated shortness of breath. Denies anything like this in the past. He is taking [id number] ibuprofen and Tylenol with no relief. He does have a history of myocardial infarction. Denies any history of pulmonary embolism. Denies any fevers, chills, sore throat, cough, palpitations, abdominal pain, nausea, vomiting, diarrhea, back pain, or headaches. MD Complaint: neck pain Onset/Timin -: days(s) Consistency: constant Treatments Prior to Arrival: Acetaminophen, Ibuprofen - Related Data Home Medications Medication Instructions Recorded Confirmed Lansoprazole [Prevacid] 30 mg PO DAILY 06/09/17 12/27/19 Amitriptyline HCl [Elavil] 50 mg PO HS 09/08/19 12/27/19 Losartan [Cozaar] 50 mg PO BID 09/08/19 12/27/19 Previous Rx's Medication Instructions Recorded Aspirin 81 mg PO DAILY chew 12/29/19 Atorvastatin [Lipitor] 80 mg PO DAILY #0 12/29/19 Clopidogrel [Plavix] 75 mg PO DAILY #90 tab 12/29/19 Furosemide [Lasix] 20 mg PO BID #180 tab 12/29/19 Magnesium Oxide 400 mg PO DAILY #30 tablet 12/29/19 Metoprolol Tartrate [Lopressor] 25 mg PO BID #180 tab 12/29/19 Nitroglycerin Sl Tabs [Nitrostat] 0.4 mg SUBLINGUAL Q5M PRN #25 tab 12/29/19 Spironolactone [Aldactone] 25 mg PO DAILY #90 tab 12/29/19 predniSONE 50 mg PO QAM 5 Days #5 tablet 10/14/21 tiZANidine [Zanaflex] 4 mg PO Q6HR PRN #30 tab 10/14/21 Allergies Allergy/AdvReac Type Severity Reaction Status Date / Time hydrochlorothiazide AdvReac Unknown Verified 10/14/21 09:30 Review of Systems ROS Statement: Those systems with pertinent positive or pertinent negative responses have been documented in the HPI. ROS Other: All systems not noted in ROS Statement are negative. Past Medical History Past Medical History: Coronary Artery Disease (CAD), Hyperlipidemia, Hypertension Additional Past Medical History / Comment(s): shingles not recent, asbestos in h is lungs History of Any Multi-Drug Resistant Organisms: None Reported Past Surgical History: Heart Catheterization With Stent, Orthopedic Surgery Additional Past Surgical History / Comment(s): knee surgery Past Anesthesia/Blood Transfusion Reactions: No Reported Reaction Past Psychological History: No Psychological Hx Reported Smoking Status: Former smoker Past Alcohol Use History: None Reported Past Drug Use History: None Reported General Exam Limitations: no limitations General appearance: alert, in no apparent distress Head exam: Present: atraumatic, normocephalic, normal inspection Neck exam: Present: normal inspection. Absent: tenderness, meningismus, lymphadenopathy Respiratory exam: Present: normal lung sounds bilaterally. Absent: respiratory distress, wheezes, rales, rhonchi, stridor, chest wall tenderness Cardiovascular Exam: Present: regular rate, normal rhythm, normal heart sounds. Absent: systolic murmur, diastolic murmur, rubs, gallop, clicks Extremities exam: Present: other (Full active and passive range of motion of the right upper extremity. Tender to palpation over the right AC joint.) Back exam: Present: normal inspection, full ROM, tenderness (Right mid back.) Neurological exam: Present: alert, oriented X3, CN II-XII intact Psychiatric exam: Present: normal affect, normal mood Skin exam: Present: warm, dry, intact, normal color. Absent: rash Course Vital Signs 10/14/21 10/14/21 09:25 11:13 Temperature 98.1 F Pulse Rate 73 72 Respiratory 16 16 Rate Blood Pressure 123/78 112/76 O2 Sat by Pulse 97 100 Oximetry Medical Decision Making - Medical Decision Making This is a 76-year-old male who presents to the emergency Department with right arm and right sided chest pain. Symptoms suspicious for a musculoskeletal process. However, given that there is minor associated shortness of breath and the fact that the patient has a cardiac history, will obtain laboratory studies to evaluate for signs of ACS. Laboratory studies reveal no actionable findings. X-ray of the left shoulder reveals a calcific tendinitis and no other contributory findings. This was discussed the patient, who notes that he does have calcifications in several other joints throughout his body. He noted substantial improvement after administration of Toradol, Decadron, and Zanaflex. Patient discharged with a prescription for prednisone and Zanaflex. Advised to take the prednisone for 5 days and the Zanaflex every 6 hours as needed for pain and muscle spasms/tightness. I offered orthopedic referral information, however the patient declined. Return precautions reviewed in depth, the patient is instructed to return to the emergency department with any new, worsening, or concerning symptoms. Patient verbalized understanding. This case was discussed in detail with the attending ED physician. Presentation, findings, and treatment plan discussed in detail as well. - Lab Data Result diagrams: 10/14/21 09:57 10/14/21 09:57 Lab Results 10/14/21 10/14/21 10/14/21 Range/Units 09:57 09:57 09:57 WBC 11.0 H (3.8-10.6) k/uL RBC 4.68 (4.30-5.90) m/uL Hgb 15.5 (13.0-17.5) gm/dL Hct 46.1 (39.0-53.0) % MCV 98.6 (80.0-100.0) fL MCH 33.2 (25.0-35.0) pg MCHC 33.7 (31.0-37.0) g/dL RDW 12.5 (11.5-15.5) % Plt Count 245 (150-450) k/uL MPV 9.1 Neutrophils % 77 % Lymphocytes % 13 % Monocytes % 6 % Eosinophils % 2 % Basophils % 1 % Neutrophils # 8.5 H (1.3-7.7) k/uL Lymphocytes # 1.5 (1.0-4.8) k/uL Monocytes # 0.7 (0-1.0) k/uL Eosinophils # 0.2 (0-0.7) k/uL Basophils # 0.1 (0-0.2) k/uL D-Dimer (<0.60) mg/L FEU Sodium 133 L (137-145) mmol/L Potassium 4.7 (3.5-5.1) mmol/L Chloride 98 (98-107) mmol/L Carbon Dioxide 21 L (22-30) mmol/L Anion Gap 14 mmol/L BUN 17 (9-20) mg/dL Creatinine 1.00 (0.66-1.25) mg/dL Est GFR (CKD-EPI)AfAm 84 (>60 ml/min/1.73 sqM) Est GFR (CKD-EPI)NonAf 72 (>60 ml/min/1.73 sqM) Glucose 118 H (74-99) mg/dL Calcium 8.9 (8.4-10.2) mg/dL Total Bilirubin 1.1 (0.2-1.3) mg/dL AST 43 (17-59) U/L ALT 38 (4-49) U/L Alkaline Phosphatase 82 (38-126) U/L Troponin I <0.012 (0.000-0.034) ng/mL Total Protein 7.5 (6.3-8.2) g/dL Albumin 4.5 (3.5-5.0) g/dL Amylase 88 (30-110) U/L Lipase 121 (23-300) U/L 10/14/21 Range/Units 09:57 WBC (3.8-10.6) k/uL RBC (4.30-5.90) m/uL Hgb (13.0-17.5) gm/dL Hct (39.0-53.0) % MCV (80.0-100.0) fL MCH (25.0-35.0) pg MCHC (31.0-37.0) g/dL RDW (11.5-15.5) % Plt Count (150-450) k/uL MPV Neutrophils % % Lymphocytes % % Monocytes % % Eosinophils % % Basophils % % Neutrophils # (1.3-7.7) k/uL Lymphocytes # (1.0-4.8) k/uL Monocytes # (0-1.0) k/uL Eosinophils # (0-0.7) k/uL Basophils # (0-0.2) k/uL D-Dimer 0.39 (<0.60) mg/L FEU Sodium (137-145) mmol/L Potassium (3.5-5.1) mmol/L Chloride (98-107) mmol/L Carbon Dioxide (22-30) mmol/L Anion Gap mmol/L BUN (9-20) mg/dL Creatinine (0.66-1.25) mg/dL Est GFR (CKD-EPI)AfAm (>60 ml/min/1.73 sqM) Est GFR (CKD-EPI)NonAf (>60 ml/min/1.73 sqM) Glucose (74-99) mg/dL Calcium (8.4-10.2) mg/dL Total Bilirubin (0.2-1.3) mg/dL AST (17-59) U/L ALT (4-49) U/L Alkaline Phosphatase (38-126) U/L Troponin I (0.000-0.034) ng/mL Total Protein (6.3-8.2) g/dL Albumin (3.5-5.0) g/dL Amylase (30-110) U/L Lipase (23-300) U/L - EKG Data EKG Comments: Sinus rhythm. Ventricular rate 72 bpm, TX interval 199 ms, QRS duration 110 ms, QTC 408 ms. - Radiology Data Radiology results: report reviewed, image reviewed Disposition Clinical Impression: Strain of neck muscle, Calcific tendonitis of right shoulder region Disposition: HOME SELF-CARE Instructions (If sedation given, give patient instructions): Cervical Strain (ED), Calcific Tendinitis (ED) Additional Instructions: Return to the emergency department with any new, worsening, or concerning symptoms. Take the prednisone as prescribed for 5 days. Take the Zanaflex as needed for pain and muscle spasms. Prescriptions: predniSONE 50 mg PO QAM 5 Days #5 tablet tiZANidine [Zanaflex] 4 mg PO Q6HR PRN #30 tab PRN Reason: Pain Is patient prescribed a controlled substance at d/c from ED?: No Referrals: None,Stated [REFERRING] - 1-2 days
[2021-10-14] MEDS ORDERED: KETOROLAC 15 MG/ML 1 ML VIAL IVP STA (10:09)
[2021-10-14 10:10] LABS: Basophils # (A) 0.1 k/uL (0-0.2); Basophils % (A) 1 %; Eosinophils # (A) 0.2 k/uL (0-0.7); Eosinophils % (A) 2 %; HCT 46.1 % (39.0-53.0); HGB 15.5 gm/dL (13.0-17.5); Lymphocytes # (A) 1.5 k/uL (1.0-4.8); Lymphocytes % (A) 13 %; MCH 33.2 pg (25.0-35.0); MCHC 33.7 g/dL (31.0-37.0); MCV 98.6 fL (80.0-100.0); Mean Platelet Volume 9.1; Monocytes # (A) 0.7 k/uL (0-1.0); Monocytes % (A) 6 %; Neutrophils # (A) 8.5 k/uL (1.3-7.7); Neutrophils % (A) 77 %; Platelet Count 245 k/uL (150-450); RBC 4.68 m/uL (4.30-5.90); RDW 12.5 % (11.5-15.5)
[2021-10-14 10:19] LABS: Albumin 4.5 g/dL (3.5-5.0); Calcium 8.9 mg/dL (8.4-10.2); Total Bilirubin 1.1 mg/dL (0.2-1.3); Total Protein 7.5 g/dL (6.3-8.2)
--- NOTE | 2021-10-14 10:45 | XR ---
EXAMINATION TYPE: XR chest 2V DATE OF EXAM: 10/14/2021 10:07 AM COMPARISON: Chest radiographs from TECHNIQUE: XR chest 2V Frontal and lateral views of the chest. CLINICAL INDICATION:Male, 76 years old with history of Pain; FINDINGS: Lungs/Pleura: There is flattening of the diaphragm with increased lucency of the lungs. No evidence o f pneumothorax, pleural effusion or focal consolidation. Left basilar atelectasis. Pulmonary vascularity: Unremarkable. Heart/mediastinum: Cardiomediastinal silhouette is unremarkable. Musculoskeletal: No acute osseous pathology. IMPRESSION: 1. Left basilar atelectasis otherwise no acute cardiopulmonary disease process. 2. COPD changes.
--- NOTE | 2021-10-14 10:47 | XR ---
EXAMINATION TYPE: XR cervical spine comp DATE OF EXAM: 10/14/2021 10:07 AM INDICATION: Patient age:Male; 76 years old; Reason for study: Pain; PHH. COMPARISON: None TECHNIQUE: The cervical spine was imaged in 4 projections. Frontal, lateral, odontoid and bilateral o blique. FINDINGS: No spondylolisthesis. Reversal of the normal cervical lordosis. There are osteophytes noted throughou t the cervical spine on the anterior and lateral aspects of the vertebral bodies. Disc space narrowin g of the lower cervical spine. Pedicles are intact. Soft tissues are within normal limits. The odont oid appears intact. IMPRESSION: 1. No fracture or dislocation. 2. Mild to moderate degenerative disc disease changes of the cervical spine.
--- NOTE | 2021-10-14 10:49 | XR ---
EXAMINATION TYPE: XR shoulder complete RT DATE OF EXAM: 10/14/2021 10:07 AM INDICATION: Patient age:Male; 76 years old; Reason for study: Pain; COMPARISON: CT chest 11/20/2020. TECHNIQUE: The right shoulder was examined in AP, internally rotated and scapular Y projections. FINDINGS: No evidence of acute osseous pathology, joint dislocation, or soft tissue swelling. Mild hypertrophic changes at the AC joint. Faint calcification at the insertion of the supraspinatus tendon. The remai apoorva portions of the visualized chest are unremarkable. IMPRESSION: 1. No acute osseous pathology. 2. Calcific tendinitis at the insertion of the supraspinatus tendon.
[2021-10-14 10:50] LABS: Potassium 4.7 mmol/L (3.5-5.1)
[2021-10-14 11:14] VITALS: BP 112/76; PULSE 72
== END 2021-10-14 11:14 | disposition home or self-care (01) ==
LOC: SUPCPDRO 09:23 → EC 09:23
DX: S16.1XXA Strain of muscle, fascia and tendon at neck level, initial encounter (principal); M75.31 Calcific tendinitis of right shoulder; E78.5 Hyperlipidemia, unspecified; Z87.891 Personal history of nicotine dependence; Z88.2 Allergy status to sulfonamides
CPT/HCPCS: 36415; 85379; 80053; 82150; 83690; 84484; 85025; 72050; 73030; 71046; 99285; 96374; 96375; J1100; J1885

== ENCOUNTER → 2021-11-25 | Outpatient (CLI) | payer MEDICARE, BC ==
[2021-11-25 11:42] LABS: ALT 35 U/L (10-49); AST 31 U/L (14-35); African American GFR (CKD) 74.7 (60.0-200.0); Albumin 4.4 g/dL (3.8-4.9); Albumin/Globulin Ratio 1.69 (1.60-3.17); Alkaline Phosphatase 94 U/L (41-126); BUN/Creat Ratio 19.27 Ratio (12.00-20.00); Blood Urea Nitrogen 21.2 mg/dL (9.0-27.0); Calcium 8.7 mg/dL (8.7-10.3); Carbon Dioxide 25.5 mmol/L (20.0-27.5); Chloride 104 mmol/L (96-109); Chol/HDL Ratio 4.32 Ratio; Globulin 2.6 g/dL (1.6-3.3); Glucose 129 mg/dL (70-110); LDL Cholesterol,Calculated 77.6 mg/dL (0.0-131.0); Non-African American GFR(CKD) 64.4 (60.0-200.0); Potassium 4.2 mmol/L (3.5-5.5); Sodium 140 mmol/L (135-145)
== END | disposition home or self-care (01) ==
LOC: LABWHC1 07:41
PROVIDERS: ATTEND Internal Medicine Interventional Cardiology
DX: E78.2 Mixed hyperlipidemia (principal)
CPT/HCPCS: 36415; 80053; 80061

== ENCOUNTER → 2021-11-26 | Outpatient (CLI) | payer MEDICARE, BC ==
--- NOTE | 2021-11-26 13:28 | CT ---
EXAMINATION TYPE: CT chest wo con DATE OF EXAM: 11/26/2021 COMPARISON: CT chest 11/20/2020 HISTORY: hx of asbestosis exposure. CT DLP: 638 mGycm. Automated Exposure Control for Dose Reduction was Utilized. TECHNIQUE: CT scan of the thorax is performed without IV contrast. FINDINGS: Lack of contrast could compromise sensitivity. LUNGS: The lungs are grossly stable, there is emphysematous change. There is a calcified granuloma al radha the fissure on the left. Subpleural nodule in the right lower lobe is stable. There is no pleur al effusion or pneumothorax seen. The tracheobronchial tree is patent. MEDIASTINUM: Lack of IV contrast is noted to limit evaluation for mediastinal and especially hilar ad enopathy. There are no definitive greater than 1 cm hilar or mediastinal lymph nodes. No cardiomega ly or pericardial effusion is seen. Coronary artery calcification is present. OTHER: No additional significant abnormality is seen. IMPRESSION: Emphysema, coronary artery disease. Coronary artery disease.
== END | disposition home or self-care (01) ==
LOC: RADCTMAIN 12:02
PROVIDERS: ATTEND Internal Medicine Pulmonary Disease
DX: J98.4 Other disorders of lung (principal); I25.10 Atherosclerotic heart disease of native coronary artery without angina pectoris; E66.9 Obesity, unspecified
CPT/HCPCS: 71250

== ENCOUNTER → 2022-07-15 | Outpatient (CLI) | payer MEDICARE, BC ==
[2022-07-15 10:56] LABS: Basophils # (A) 0.04 X 10*3/uL; Basophils % (A) 0.5 %; Eosinophils # (A) 0.23 X 10*3/uL; Eosinophils % (A) 3.1 %; HCT 45.5 %; HGB 15.4 d/dL; Lymphocytes # (A) 1.75 X 10*3/uL; Lymphocytes % (A) 23.2 %; MCH 33.2 pg; MCHC 33.8 d/dL; MCV 98.1 FL; Mean Platelet Volume 10.9 FL; Monocytes # (A) 0.57 X 10*3/uL; Monocytes % (A) 7.6 %; NRBC Per 100 WBC 0 X 10*3/uL; Neutrophils # (A) 4.91 X 10*3/uL; Neutrophils % (A) 65.2 %; Platelet Count 193 X 10*3/uL; RBC 4.64 X 10*6/uL; RDW 12.7 %; WBC 7.53 X 10*3/uL
[2022-07-15 12:46] LABS: ALT 61 U/L; AST 40 U/L; Albumin 4.4 d/dL; Alkaline Phosphatase 93 U/L; BUN/Creat Ratio 17.36 Ratio; Blood Urea Nitrogen 19.1 mg/dL; Calcium 9.1 mg/dL; Carbon Dioxide 24.7 mmol/L; Chloride 100 mmol/L; Globulin 2.1 d/dL; Glucose 124 mg/dL; LDL Cholesterol,Calculated 81.8 mg/dL; Potassium 4.7 mmol/L; Sodium 139 mmol/L; Total Bilirubin 0.5 mg/dL; Total Protein 6.5 d/dL; Uric Acid 6.9 mg/dL
== END | disposition home or self-care (01) ==
LOC: LABWHC1 07:33
PROVIDERS: ATTEND Nurse Practitioner Adult Health
DX: Z12.5 Encounter for screening for malignant neoplasm of prostate (principal); I10 Essential (primary) hypertension; E78.2 Mixed hyperlipidemia; D45 Polycythemia vera; M10.9 Gout, unspecified; E78.5 Hyperlipidemia, unspecified; R73.9 Hyperglycemia, unspecified
CPT/HCPCS: 36415; 80053; 80061; 83036; 84153; 84550; 85025

== ENCOUNTER → 2022-07-16 | Outpatient (CLI) | payer MEDICARE, BC ==
--- NOTE | 2022-07-16 11:26 | BD ---
EXAMINATION TYPE: Axial Bone Density DATE OF EXAM: 07/16/2022 CLINICAL HISTORY: 77 years old Male. ICD-10 CODE: Z13.820 OSTEOPOROSIS Height: 67.5 in Weight: 207 lbs RISK FACTORS HISTORY OF: Diet low in dairy products/other sources of calcium: yes MEDICATIONS: Additional Medications: heart meds EXAM MEASUREMENTS: Bone mineral densitometry was performed using the [employer] System. Bone mineral density as measured about the Lumbar spine is: ----- L1-L4(G/cm2): 1.354 T Score Values are as follows: ----- L1: 1.1 ----- L2: 0.8 ----- L3: 0.9 ----- L4: 2.6 ----- L1-L4: 1.5 Z Score Values are as follows: ----- L1: 1.0 ----- L2: 0.6 ----- L3: 0.7 ----- L4: 2.4 ----- L1-L4: 1.3 Bone mineral density baseline Bone mineral density about the R hip (g/cm2): 1.146 Bone mineral density about the L hip (g/cm2): 1.128 T Score values are as follows: -----R Neck: -0.1 -----L Neck: 0.2 -----R Total: 1.1 -----L Total: 1.0 Z Score values are as follows: -----R Neck: 0.7 -----L Neck: 1.0 -----R Total: 1.0 -----L Total: 0.9 Bone mineral density baseline FRAX%s: The graph provided illustrates a 5.1% chance for a major osteoporotic fx and a 1.2% chance fo r the hips probability for fx in 10 years time. IMPRESSION: Normal (Values between +1 and -1 indicate normal bone mass). Consider repeating this study in 5 year s or sooner if there is some new clinical indication. NOTE: T-SCORE=SD OF THE YOUNG ADULT MEAN.
--- NOTE | 2022-07-16 11:33 | US ---
EXAMINATION TYPE: US carotid duplex BILAT DATE OF EXAM: 07/16/2022 COMPARISON: US 2018 CLINICAL INDICATION: Male, 77 years old with history of I65.29 OCCLUSION AND STENOSIS OF UNSPECIFIED CAROT; TECHNIQUE: Carotid duplex ultrasound examination. Indirect Doppler criteria was utilized. FINDINGS: EXAM MEASUREMENTS: RIGHT: Peak Systolic Velocity (PSV) cm/sec ----- Right CCA: 69.0 ----- Right ICA: 93.0 ----- Right ECA: 161.3 ICA/CCA ratio: 1.3 RIGHT: End Diastole cm/sec ----- Right CCA: 18.8 ----- Right ICA: 39.1 ----- Right ECA: 26.9 LEFT: Peak Systolic Velocity (PSV) cm/sec ----- Left CCA: 61.3 ----- Left ICA: 84.9 ----- Left ECA: 128.0 ICA/CCA ratio: 1.4 LEFT: End Diastole cm/sec ----- Left CCA: 18.3 ----- Left ICA: 27.3 ----- Left ECA: 27.6 VERTEBRALS (direction of flow): Right Vertebral: Antegrade Left Vertebral: Antegrade Rhythm: Normal Moderate atherosclerotic calcification involving the bilateral carotid bulbs. Increased flow velociti es of the bilateral ECAs with right greater than left again. IMPRESSION: Moderate atherosclerotic change bilaterally without significant focal stenosis in either internal car otid artery. Criteria for Assigning % of Stenosis / Diameter reduction (Estimation based on the indirect measurements of the internal carotid artery velocities (ICA PSV). 1. Normal (no stenosis)=ICA PSV < 125 cm/s: ratio < 2.0: ICA EDV<40 cm/s. 2. Less than 50% stenosis=ICA PSV < 125 cm/s: ratio < 2.0: ICA EDV<40 cm/s. 3. 50 to 69% stenosis=ICA PSV of 125 to 230 cm/s: ration 2.0 ? 4.0: ICA EDV 40-100 cm/s. 4. Greater than 70% stenosis to near occlusion= ICA PSV > 230 cm/s: ratio > 4.0: ICA EDV > 100 cm/s. 5. Near occlusion= ICA PSV velocities may be low or undetectable: variable ratio and ICA EDV. 6. Total occlusion=unable to detect flow.
== END | disposition home or self-care (01) ==
LOC: RADBDWWP 09:51
PROVIDERS: ATTEND Internal Medicine
DX: Z13.820 Encounter for screening for osteoporosis (principal); I65.23 Occlusion and stenosis of bilateral carotid arteries
CPT/HCPCS: 77080; 93880